=== PATIENT | male | born 1955 | race Caucasian/White ===

== ENCOUNTER 2018-12-13 11:12 | Inpatient (IN) | payer BC ==
--- NOTE | 2018-12-13 11:20 | ED ---
Back Pain - HPI Summary HPI Summary: The patient is a 63 y/o arriving by ambulance to [facility] accompanied by with a chief complaint of thoracic and lumbar back pain gradually onset since surgery on 12/06/18 at [facility]. He reports that he had a spinal fusion of L2-L3, L3-L4 for spinal stenosis about a week ago and had improvement for the first few days while using Hydrocodone. However, over the last 2-3 days, his pain has been increasing despite pain medicine. He also has taken Oxycodone , which he takes chronically for nerve damage, without any relief of the pain. He was advised to stop the Lyrica he also takes chronically, but he had one prior to arrival to see if there was any change in his pain as there was concern that halting it has been the cause for the decline in improvement his is experiencing now. He currently rates the pain 10/10 in severity. He denies any numbness in the lower extremities or bowel or bladder incontinence. There is no discharge noted from the surgical site other than normal drainage. He notes he also has been taking Zofran for nausea that he has been having. PMHx: HTN, high voltage electric shock therapy, spinal stenosis surgery. Former smoker , ocasional EtOH, no substance use. Medications reviewed. Allergies noted. - History of Current Complaint Stated Complaint: BACK PAIN Hx Obtained From: Patient, Family/Prosthetic Aides Teacher - Onset/Duration: Gradual Onset, Lasting Days - since surgery 1 week worsening in last 2-3 days, Still Present Onset/Duration: Started Days Ago, Still Present Timing: Lasting Days Back Pain Location: Is Discrete @ - thoracic and lumbar spine Severity Initially: Moderate Severity Currently: Severe Pain Intensity: 10 Pain Scale Used: 0-10 Numeric Character: Sharp Aggravating Symptom(s): Movement Alleviating Symptom(s): Nothing - Hydrocodone, Oxycodone, Zofran to no relief Associated Signs And Symptoms: Positive: Other - nausea. Negative: bowel or bladder incontinence.. Negative: Numbness - in legs - Allergies/Home Medications Allergies/Adverse Reactions: Allergies Allergy/AdvReac Type Severity Reaction Status Date / Time aspirin Allergy Stomach Verified 12/13/18 11:23 Cramps Home Medications: Home Medications Baclofen TAB* [Lioresal TAB*] 10 mg PO TID PRN 12/13/18 [History Confirmed 12/13] Bifidobacterium Infantis [Align] 4 mg PO DAILY 12/13/18 [History Confirmed 12/13] Budesonide CAP(NF) 9 mg PO DAILY 12/13/18 [History Confirmed 12/13/18] Docusate CAP* [Colace Cap*] 100 mg PO BID 12/13/18 [History Confirmed 12/13/18] Losartan TAB* [Cozaar TAB*] 50 mg PO DAILY 12/13/18 [History Confirmed 12/13/18] Mometasone NASAL (NF) [Nasonex (NF)] 2 spray BOTH NARES DAILY PRN 12/13/18 [ History Confirmed 12/13/18] Naloxone Nasal [place]* [Narcan Nasal [place]] 1 spray NASAL ONCE 12/13/18 [History Confirmed 12/13/18] Oxycodone HCl [Roxicodone] 5 - 10 mg PO Q4HR PRN 12/13/18 [History Confirmed 10/24] Polyethylene Glycol 3350* [Miralax*] 17 gm PO DAILY 12/13/18 [History Confirmed 12/13/18] Pregabalin CAP(*) [Lyrica CAP(*)] 75 mg PO TID 12/13/18 [History Confirmed 12/13] Senna TAB 8.6 mg* [Senokot 8.6 mg TAB*] 1 tab PO BID PRN 12/13/18 [History Confirmed 12/13/18] Tadalafil (Nf) [Cialis (NF)] 20 mg PO DAILY PRN 12/13/18 [History Confirmed 10/24] Teriparatide [Forteo] 20 mcg SUBCUT DAILY 12/13/18 [History Confirmed 12/13/18] PMH/Surg Hx/FS Hx/Imm Hx Endocrine/Hematology History: Denies: Hx Diabetes Cardiovascular History: Reports: Hx Hypertension Denies: Hx Hypercholesterolemia Musculoskeletal History: Reports: Hx Back Problems - spinal stenosis Neurological History: Reports: Other Neuro Impairments/Disorders - 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 Negative: Other - bowel incontinence Negative: incontinence Positive: Other - pain back at surgical site thoracic to lumbar Negative: Other - drainage from surgical site Negative: Numbness - in legs All Other Systems Reviewed And Are Negative: Yes Physical Exam - Summary Physical Exam Summary: VITAL SIGNS: Reviewed. GENERAL: Patient is a well-developed and nourished male who is lying comfortable in the stretcher. She appears to be in acute distress secondary to pain. Patient is not in any acute respiratory distress. HEAD AND FACE: No signs of trauma. No ecchymosis, hematomas or skull depressions. No sinus tenderness. EYES: PERRLA, EOMI x 2, No injected conjunctiva, no nystagmus. EARS: Hearing grossly intact. Ear canals and tympanic membranes are within normal limits. MOUTH: Oropharynx within normal limits. NECK: Supple, trachea is midline, no adenopathy, no JVD, no carotid bruit, no c- spine tenderness, neck with full ROM. CHEST: Symmetric, no tenderness at palpation. LUNGS: Clear to auscultation bilaterally. No wheezing or crackles. CVS: Regular rate and rhythm, S1 and S2 present, no murmurs or gallops appreciated. ABDOMEN: Surgical scar is clear, dry, intact, and without erythema. Soft, non- tender. No signs of distention. No rebound, no guarding, and no masses palpated. Bowel sounds are normal. EXTREMITIES: FROM in all major joints, no edema, no cyanosis or clubbing. NEURO: Alert and oriented x 3. No acute neurological deficits. Speech is normal and follows commands. SKIN: Dry and warm. Triage Information Reviewed: Yes Vital Signs Reviewed: Yes Procedures - Sedation Patient Received Moderate/Deep Sedation with Procedure: No Diagnostics - Laboratory Result Diagrams: 12/13/18 11:35 12/13/18 11:35 Lab Statement: Any lab studies that have been ordered have been reviewed, and results considered in the medical decision making process. Re-Evaluation - Re-Evaluation First Eval Re-Evaluation Time: 12:40 Change: Unchanged Comment: Patient still in pain. We will order Dilaudid. Second Eval Re-Evaluation Time: 14:30 Change: Unchanged Comment: We discussed plan for admission. Back Pain Course/Dx - Course Assessment/Plan: Patient is a 63 y/o M with chief complaint of increasing back pain following spinal fusion a week ago despite Hydrocodone and Oxycodone use, and he is also using Zofran for nausea hes been experiencing. There is concern that stopping Lyrica as advised has worsened his symptoms. 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 Blood test results without any significant abnormality except for slight anemia, urinalysis is negative for UTI. In the ED course, the patient was given IV fluids, Zofran for nausea and vomiting, morphine for back pain and for spasms. The patients symptoms have improved, however the patient is having pain in the lower back. The patient was given 1 mg of Dilaudid and the symptoms have significantly improved. I discussed my physical exam and findings with Zuly Branham patient and from Dr. Karsten Burgos neurosurgeon from [facility] who performed the surgery for the patient, and they recommend only pain management since the patient does not have any fever, the wound is clean dry and intact, and the patient doesnt have an increased in WBCs. The patient was afraid that the pain would return, therefore he requested to be admitted. I discussed my physical exam and findings with Dr. Dumont from the hospital services who accepted the patient for admission. The patient is hemodynamically stable alert and oriented 3. - Diagnoses Provider Diagnoses: Acute back pain - Provider Notifications Discussed Care Of Patient With: AGUSTINA Rudolph - orthopedic neurosurgeryKarsten's office Time Discussed With Above Provider: 14:20 Instructed by Provider To: Other - I spoke with the NPP in Dr. Karsten Burgos's office for pain management, who recommends Oxycodone, Tylenol, ice packs, and lidocaine patch. I discussed the patients case with Dr. Dumont, who accepts the patient for admission at 1420. Discharge ED - Sign-Out/Discharge Documenting (check all that apply): Patient Departure - Patient accepted for admission by Dr. Dumont. - Discharge Plan Condition: Stable Disposition: ADMITTED TO [facility] - Billing Disposition and Condition Condition: STABLE Disposition: Admitted to [facility] - Attestation Statements Document Initiated by Scribe: Yes Documenting Scribe: Gilma Funez Provider For Whom Scribe is Documenting (Include Credential): Dr. Mitul Marsh MD Scribe Attestation: I, Gilma Funez, scribed for Dr. Mitul Marsh MD on 12/13/18 at 1856. Scribe Documentation Reviewed: Yes Provider Attestation: The documentation as recorded by the scribe, Gilma Funez accurately reflects the service I personally performed and the decisions made by me, Dr. Mitul Marsh MD Status of Scribe Document: Viewed
[2018-12-13] MEDS ORDERED: Ondansetron INJ* 2 MG/ML VIAL IV ONE (11:22)
[2018-12-13] MEDS ORDERED: Morphine 4 MG/ML VIAL (1 ml) 4 MG/ML VIAL IV ONE (11:22)
[2018-12-13] MEDS ORDERED: NS 0.9% 1000 ML** 1,000 ML IV ONE ×2 (11:22→14:49)
[2018-12-13] MEDS ORDERED: diazePAM INJ* 5 MG/ML 2ML SYRINGE IV ONE (11:22)
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
--- OUTSIDE RECORDS SUMMARY | 2018-12-13 11:46 | XMS REPORT | Continuity of Care Document ---
:1955 External Reference #:[id number] Author Name Gold Daivd PA-C (transmitted by agent of provider Sami Chiang) Address [address] [facility], [place] [address] Care Team Providers Name Role Phone Kenrick Avilez MD - Internal Medicine Care Team Information Operations Expert Problems Active Problems Provider Date Arthralgia of the pelvic region and thigh Alma Coppola M.D. Onset: 2014 Enthesopathy of hip region Alma Coppola M.D. Onset: 10/15/2014 Localized, primary osteoarthritis Alma Coppola M.D. Onset: 08/14/2015 Knee pain Alma Coppola M.D. Onset: 08/28/2015 Social History Type Date Description Comments Sex Unknown ETOH Use Occasionally consumes alcohol Recreational Drug Use Never Used Drugs Tobacco Use Start: Unknown End: Patient is a former smoker Unknown Smoking Status Reviewed: 10/26/18 Patient is a former smoker Allergies, Adverse Reactions, Alerts Active Allergies Reaction Severity Comments Date Aspirin 03/27/2013 Inactive Allergies Naproxen 11/14/2014 Medications Active Medications SIG Qnty Indications Ordering Date Provider Oxycodone Unknown Bupropion Unknown Colace Unknown Diclofenac Unknown Misoprostol Unknown Esomeprazole Unknown Lyrica four times daily Unknown Capsules Blood Pressure Unknown Medication Forteo inject 20 mcg (one Unknown 600mcg/2.4ML dose) daily Solution subcutaneously Medications Administered in Office Medication SIG Qnty Indications Ordering Provider Date Synvisc Or Synvisc-One Alma Coppola M.D. 10/26/2018 Injection 1 MG Injection Synvisc Or Synvisc-One Alma Carlita Coppola 10/26/2018 Injection 1 MG Injection Synvisc Or Synvisc-One Alma Abdon, Carlita 10/19/2018 Injection 1 MG Injection Synvisc Or Synvisc-One Alma Abdon, Carlita 10/19/2018 Injection 1 MG Injection Synvisc Or Synvisc-One Alma Carlita Coppola 07/12/2017 Injection 1 MG Injection Synvisc Or Synvisc-One Alma Abdon, Carlita 07/12/2017 Injection 1 MG Injection Synvisc Or Synvisc-One Alma Coppola M.D. 07/05/2017 Injection 1 MG Injection Synvisc Or Synvisc-One Alma Coppola M.D. 07/05/2017 Injection 1 MG Injection Synvisc Or Synvisc-One Alma Coppola M.D. 06/28/2017 Injection 1 MG Injection Synvisc Or Synvisc-One Alma Coppola M.D. 06/28/2017 Injection 1 MG Injection Synvisc Or Synvisc-One Alma Coppola M.D. 06/19/2016 Injection 1 MG Injection Synvisc Or Synvisc-One Alma Coppola M.D. 06/12/2016 Injection 1 MG Injection Synvisc Or Synvisc-One Alma Coppola M.D. 06/05/2016 Injection 1 MG Injection Synvisc Or Synvisc-One Alma Abdon, Carlita 09/13/2015 Injection 1 MG Injection Synvisc Or Synvisc-One Alma Abdon, Carlita 09/13/2015 Injection 1 MG Injection Synvisc Or Synvisc-One Alma Carlita Coppola 09/04/2015 Injection 1 MG Injection Synvisc Or Synvisc-One Alma Carlita Coppola 09/04/2015 Injection 1 MG Injection Synvisc Or Synvisc-One Alma Carlita Coppola 08/28/2015 Injection 1 MG Injection Synvisc Or Synvisc-One Alma Abdon, M.D. 08/28/2015 Injection 1 MG Injection Celestone 3 mg and 3mg Maria Isabelpablo Frost, 11/14/2014 Injection Carlita Depomedrol 80MG Alma Coppola M.D. 10/15/2014 Injection Synvisc Or Synvisc-One Alma Coppola M.D. 07/23/2014 Injection 1 MG Injection Synvisc Or Synvisc-One Alma Coppola M.D. 07/16/2014 Injection 1 MG Injection Synvisc Or Synvisc-One Alma Coppola M.D. 07/09/2014 Injection 1 MG Injection Celestone 3 mg and 3mg Maria Isabelpablo Frost, 01/03/2014 Injection Carlita Synkeith Or Synvisc-One Alma Coppola M.D. 11/24/2013 Injection 1 MG Injection Synvisc Or Synvisc-One Alma Coppola M.D. 11/17/2013 Injection 1 MG Injection Synvisc Or Synvisc-One Alma Coppola M.D. 11/10/2013 Injection 1 MG Injection Synvisc Or Synvisc-One Alma Coppola M.D. 10/27/2013 Injection 1 MG Injection Synvisc Or Synvisc-One Alma Coppola M.D. 10/20/2013 Injection 1 MG Injection Synvisc Or Synvisc-One Alma Coppola M.D. 10/13/2013 Injection 1 MG Injection Synvisc Or Synvisc-One Alma Coppola M.D. 04/10/2013 Injection 1 MG Injection Synvisc Or Synvisc-One Alma Coppola M.D. 04/03/2013 Injection 1 MG Injection Synvisc Or Synvisc-One Alma Coppola M.D. 03/27/2013 Injection 1 MG Injection Depomedrol 80MG Alma Coppola M.D. 02/15/2013 Injection Immunizations Description No Information Available Vital Signs Date Vital Result Comment 11/02/2018 1:16pm Height 69.5 inches 5'9.50" Weight 170.00 lb stated Heart Rate 72 /min BP Systolic 120 mmHg BP Diastolic 74 mmHg Respiratory Rate 12 /min Pain Level 0 BMI (Body Mass Index) 24.7 kg/m2 10/26/2018 9:10am Height 69.5 inches 5'9.50" Weight 170.00 lb BP Systolic 142 mmHg BP Diastolic 72 mmHg Respiratory Rate 15 /min Body Temperature 96.3 F Pain Level 4 BMI (Body Mass Index) 24.7 kg/m2 Results Description No Information Available Procedures Date Code Description Status 10/26/201824366 Inject/Drain Joint/Bursa Major W/O US Completed 10/19/201803934 Inject/Drain Joint/Bursa Major W/O US Completed Medical Devices Description No Information Available Encounters Type Date Location Provider Dx Diagnosis Office Visit 09/19/2018 Orthopedic Alma Coppola, M17.0 Bilateral primary 1:[facility] oste[facility] of knee Assessments Date Code Description Provider 11/02/2018 M25.562 Pain in left knee Gold Frankie, PA-C 11/02/2018 M25.561 Pain in right knee Gold Rosano PA-C 11/02/2018 M25.462 Effusion, left knee Gold Rosano PA-C 11/02/2018 M25.461 Effusion, right knee Gold Rosano, PA-C 11/02/2018 M17.0 Bilateral primary osteoarthritis of knee Gold Frankie, PA-C 10/26/2018 M25.562 Pain in left knee Alma Coppola M.D. 10/26/2018 M25.561 Pain in right knee Alma Coppola M.D. 10/26/2018 M25.462 Effusion, left knee Alma Coppola M.D. 10/26/2018 M25.461 Effusion, right knee Alma Coppola M.D. 10/26/2018 M17.0 Bilateral primary osteoarthritis of knee Alma Coppola M.D. 10/19/2018 M25.562 Pain in left knee Alma Coppola M.D. 10/19/2018 M25.561 Pain in right knee Alma Coppola M.D. 10/19/2018 M25.462 Effusion, left knee Alma Coppola M.D. 10/19/2018 M25.461 Effusion, right knee Alma Abdon, M.D. 10/19/2018 M17.0 Bilateral primary osteoarthritis of knee Alma Coppola M.D. 09/19/2018 M17.0 Bilateral primary osteoarthritis of knee Alma Coppola M.D. Plan of Treatment 11/02/2018 - JACIEL Webb-CM25.562 Pain in left kneeFollow up:Follow up: prnM25.561 Pain in right kneeM25.462 Effusion, left kneeM25.461 Effusion, right kneeM17.0 Bilateral primary osteoarthritis of kneeAllImmunizations/Injections: Synvisc Or Synvisc-One Injection 1 MG- Pt brought in, no billSynvisc Or Synvisc- One Injection 1 MG- Pt brought in, no billM25.562 Pain in left kneeFollow up: Follow up: prnM25.561 Pain in right kneeM25.462 Effusion, left kneeM25.461 Effusion, right kneeM17.0 Bilateral primary osteoarthritis of knee Functional Status Description No Information Available Mental Status Description No Information Available Referrals Description No Information Available
--- OUTSIDE RECORDS SUMMARY | 2018-12-13 11:46 | XMS REPORT | Continuity of Care Document ---
:1955 External Reference #:[id number] Author Name Alma Coppola M.D. (transmitted by agent of provider Tracee Chicas) Address [address] [facility] [place] [address] Care Team Providers Name Role Phone Kenrick Avilez MD - Internal Medicine Care Team Information Delivery Specialist Problems Active Problems Provider Date Arthralgia of [...] a former smoker Unknown Smoking Status Reviewed: 10/19/18 Patient is a former smoker Allergies, Adverse [...] Date Synvisc Or Synvisc-One Alma Coppola M.D. 07/12/2017 Injection 1 MG Injection Synvisc Or Synvisc-One Alma Coppola M.D. 07/12/2017 Injection 1 MG Injection Synvisc Or [...] Injection Synvisc Or Synvisc-One Alma Coppola M.D. 09/13/2015 Injection 1 MG Injection Synvisc Or Synvisc-One Alma Coppola M.D. 09/13/2015 Injection 1 MG Injection Synvisc Or Synvisc-One Alma Coppola M.D. 09/04/2015 Injection 1 MG Injection Synvisc Or Synvisc-One Alma Coppola M.D. 09/04/2015 Injection 1 MG Injection Synvisc Or Synvisc-One Alma Coppola M.D. 08/28/2015 Injection 1 MG Injection Synvisc Or Synvisc-One Alma Coppola M.D. 08/28/2015 Injection 1 MG Injection Celestone 3 mg and 3mg Maria Isabel Frost, 11/14/2014 Injection Carlita Depomedrol 80MG Alma Coppola M.D. 10/15/2014 Injection Synvisc Or Synvisc-One Alma Coppola M.D. 07/23/2014 Injection 1 MG Injection Synvisc Or Synvisc-One Alma Coppola M.D. 07/16/2014 Injection 1 MG Injection Synvisc Or Synvisc-One Alma Coppola M.D. 07/09/2014 Injection 1 MG Injection Celestone 3 mg and 3mg Maria Isabel DavisMercedes, 01/03/2014 Injection Carlita Synvisc Or Synvisc-One Alma Coppola M.D. 11/24/2013 Injection [...] Available Vital Signs Date Vital Result Comment 10/19/2018 10:05am Height 69.5 inches 5'9.50" Weight 170.00 lb BP Systolic 124 mmHg BP Diastolic 82 mmHg Body Temperature 97.3 F BMI (Body Mass Index) 24.7 kg/m2 09/19/2018 1:13pm Height 70 inches 5'10" Weight 170.00 lb BP Systolic 112 mmHg BP Diastolic 60 mmHg Body Temperature 97.7 F BMI (Body Mass Index) 24.4 kg/m2 Results Description No Information Available Procedures Date Code Description Status 10/19/2018 Inject/Drain Joint/Bursa Major W/O US Completed 10/19/2018 Inject/Drain Joint/Bursa Major W/O US Completed Medical Devices Description No Information Available Encounters Type Date Location Provider Dx Diagnosis Office Visit 09/19/2018 Orthopedic Alma Coppola, M17.0 Bilateral primary 1:[facility] osteoarthritis of knee Assessments Date Code Description Provider 10/19/2018 M25.562 Pain in left knee Alma Coppola M.D. 10/19/2018 M25.561 Pain in right knee Alma Coppola M.D. 10/19/2018 M25.462 Effusion, left knee Alma Coppola M.D. 10/19/2018 M25.461 Effusion, right knee Alma Coppola M.D. 10/19/2018 M17.0 Bilateral primary osteoarthritis of knee Alma Coppola M.D. 09/19/2018 M17.0 Bilateral primary osteoarthritis of knee Alma Coppola M.D. Plan of Treatment Future Appointment(s):11/02/2018 1:00 pm - Gold David [facility]-C [facility]/26/2018 9:30 am - Al[facility] Coppola M.D. at [facility]2018 - Alma Coppola M.D.M25.562 Pain in left kneeFollow up:Follow up: 1 weekM25.561 Pain in right kneeM25.462 Effusion, left kneeM25.461 Effusion, right kneeM17.0 Bilateral primary osteoarthritis of knee Functional Status Description No Information Available Mental Status Description No Information Available Referrals Description No Information Available
--- OUTSIDE RECORDS SUMMARY | 2018-12-13 11:46 | XMS REPORT | Continuity of Care Document ---
:1955 External Reference #:[id number] Author Name Alma Coppola M.D. (transmitted by agent of provider Geeta Amaya) Address [address] [facility] [place] [address] Care Team Providers Name Role Phone Kenrick Avilez MD - Internal Medicine Care Team Information Workers Compensation Claims Specialist Problems Active Problems Provider Date Arthralgia [...] Date Synvisc Or Synvisc-One Alma Coppola M.D. 10/19/2018 Injection 1 MG Injection Synvisc Or Synvisc-One Alma Coppola M.D. 10/19/2018 Injection 1 MG Injection Synvisc Or [...] Celestone 3 mg and 3mg Maria Isabel BurroughseyMercedes, 01/03/2014 Injection Carlita Synvisc Or Synvisc-One Alma [...] Available Vital Signs Date Vital Result Comment 10/26/2018 9:10am Height 69.5 inches 5'9.50" Weight 170.00 lb BP Systolic 142 mmHg BP Diastolic 72 mmHg Respiratory Rate 15 /min Body Temperature 96.3 F Pain Level 4 BMI (Body Mass Index) 24.7 kg/m2 10/19/2018 10:05am Height 69.5 inches 5'9.50" Weight 170.00 lb BP Systolic 124 mmHg BP Diastolic 82 mmHg Body Temperature 97.3 F BMI (Body Mass Index) 24.7 kg/m2 Results Description No Information Available Procedures Date Code Description Status 10/19/2018 07679 Inject/Drain Joint/Bursa Major W/O US Completed Medical [...] Gold David PA-C at [facility] Functional Status Description No Information Available Mental Status Description No Information Available Referrals Description No Information Available
--- OUTSIDE RECORDS SUMMARY | 2018-12-13 11:46 | XMS REPORT | Summary of Care ---
:1955 Author Organization [facility] Address [address] [facility] [place] [address] Care Team Providers Name Role Phone Kenrick Avilez MD Primary Care Provider Reason for Visit Reason Comments Follow-up Follow-up to renew Rx for Budesonide. Encounter Details Date Type Department Care Team Description 11/01/2018 Office Visit Herson Padgett, Microscopic colitis, Gastroenterology/Hepa Marj Villatoro NP unspecified tology [address] [facility] microscopic colitis [address] [facility] [place] [address] type (Primary Dx) [place] [address] [phone] Allergies Active Allergy Reactions Severity Noted Date Comments Aspirin GI Reaction 06/15/2007 documented as of this encounter (statuses as of 11/01/2018) Medications Medication Sig Dispensed Refills Start End Date Status Date daily vitamin PO Take 1 Tab by 0 Active TABS mouth DAILY. docusate sodium Take 100 mg by 0 Active (COLACE) 100 MG mouth TWICE DAILY. Oral Cap polyethylene Take 17 g by mouth 1 Bottle 3 Active glycol (MIRALAX) DAILY. 2 Oral Powder baclofen Take 1 Tab by 270 Tab 2 Active (LIORESAL) 10 MG mouth THREE TIMES 9 Oral DAILY. TabIndications: Scoliosis of thoracolumbar spine, unspecified scoliosis type Insulin Pen 1 Device by Does 100 Each 3 Active Needle (PEN not apply route 9 NEEDLES) 32G X 6 DAILY. Use with MM Does not apply Forteo Misc LYRICA 75 MG Oral take 1 capsule by 90 Cap 5 Active Cap mouth three times 9 a day mometasone [place] 2 Sprays in 17 g 11 Active [...] MG Oral Tab mouth once daily 9 OXYcodone-acetami Take 1 Tab by 180 Tab 0 Active nophen (PERCOCET) mouth EVERY FOUR 9 5-325 MG Oral Tab HOURS NEEDED (for chronic pain). Max Daily Amount: 6 Tabs. FORTEO 600 INJECT 20 MCG 2.4 mL 11 Active MCG/2.4ML SUBCUTANEOUSLY 9 Subcutaneous ONCE DAILY. Solution REFRIGERATE AND DISCARD PEN 28 DAYS AFTER INITIAL USE. budesonide Take 3 Caps by 90 Cap 11 Active (ENTOCORT EC) 3 mouth DAILY. 9 MG Oral CAPSULE ENTERIC COATED PARTICLESIndicati ons: Microscopic colitis, unspecified microscopic colitis type budesonide take 3 capsules by 90 Cap 0 11/02/19 Discontinued (ENTOCORT EC) 3 mouth once daily 9 19 (Reorder) MG Oral CAPSULE NEED OFFICE ENTERIC COATED VISIT FOR FURTHER PARTICLES REFILLS documented as of this encounter (statuses as of 11/01/2018) Active Problems Problem Noted Date Inflammatory arthropathy [...] as of this encounter (statuses as of 11/01/2018) Resolved Problems Problem Noted Date Resolved Date Lung nodule 10/03/2007 10/03/2007 Lung nodule 10/03/2007 04/01/2009 Overview: seen on T-spine [facility] at [facility], 09/12, will recheck 12/13 Depression 06/15/2007 12/16/2016 documented as of this encounter (statuses as of 11/01/2018) Immunizations Name Administration Dates Next Due H1N1 [...] Sign Reading Time Taken Comments Blood Pressure 130/78 11/01/2018 9:35 AM EDT Pulse 66 11/01/2018 9:35 AM EDT Temperature - - Respiratory Rate - - Oxygen Saturation - - Inhaled Oxygen Concentration - - Weight 79.8 kg (176 lb) 11/01/2018 9:35 AM EDT Height 177.8 cm (5' 10") 11/01/2018 9:35 AM EDT Body Mass Index 25.25 11/01/2018 9:35 AM EDT documented in this encounter Patient Instructions Patient InstructionsWiMarj bowen NP - 11/01/2018 9:40 AM EDT1. Continue Budesonide as directed 2. Follow up annually, sooner with any changes Thank you for choosing the [facility] for your needs today! -Marj Padgett N.P. , Please call if you need to cancel or change your appt. time. Thank you for choosing [facility] for your health care needs, and for consulting with [facility] today. You may receive a survey following this visit, or after an upcoming hospital stay. As easy as it is to feel overloaded with surveys, we are required to send them out randomly and they do provide important feedback so that we may serve your needs in the best way. Please do take the few minutes required to complete the survey if you receive one. We get them too, after seeing the doctor, and they only take a few minutes to complete. documented in this encounter Progress Notes Marj Padgett NP - 11/01/2018 9:40 AM EDT PATIENT: Wolfgang Ellington : 1955 DATE OF SERVICE: 11/01/2018 REFERRING PRACTITIONER: Allan PRIMARY CARE PROVIDER: Kenrick Avilez CHIEF COMPLAINT: Chief Complaint Patient presents with Follow-up Follow-up to renew Rx for Budesonide. Subjective HISTORY OF PRESENT ILLNESS: Wolfgang Ellington is a 63-y.o. male who presents for follow-up of microscopic coliits. Has been takingBudesonide for several years, currently on 9mg daily, does taper to 6mg daily when feeling well. Last colonoscopy 2015 showed mild chronic inflammation. Denies heartburn, dysphagia, fatigue, nausea, vomiting, melena, hamatemesis, hematochezia, jaundice,fevers, chills, night sweats, weight loss, easy bruising , chest pain, shortness of breath, dysuria, hematuria, pyuria, joint pains, acholic stools, dark urine or systemic pruritis. Current Outpatient Medications Medication Sig baclofen (LIORESAL) [...] day mometasone (NASONEX) 50 MCG/ACT Nasal Suspension [place] 2 Sprays in nose DAILY NEEDED (for [...] visit. Allergies Allergen Reactions Aspirin GI Reaction REVIEW OF SYSTEMS: All remaining review of systems was negative except for as noted in the history of present illness/subjective. Objective PHYSICAL EXAMINATION: VITALS: BP 130/78 | Pulse 66 | Ht 5' 10" (1.778 m) | Wt 176 lb (79.8 kg) | BMI 25.25 kg/m Body mass index is 25.25 kg/m. GENERAL: alert, oriented, no acute distress. HEENT: No scleral icterus, MMM Psych: Affect normal Neck: no lymphadenopathy LUNGS: clear to auscultation bilaterally. HEART: regular rhythm, no murmurs, no gallops, no rubs. ABDOMEN: general exam: soft, diffuse tenderness, non-distended, without masses or organomegaly, normal active bowel sounds, Gotti's sign negative. Extrmities: no edema Skin: clear Neuro: gait normal, a&o x 3 RECTAL: exam deferred. Lab Results Component Value Date WBC 4.63 08/24/2018 HGB 14.2 08/24/2018 HCT 43.8 08/24/2018 PLAT 246 08/24/2018 Lab Results Component Value Date NA 138 08/24/2018 K 5.0 08/24/2018 CL 103 08/24/2018 CO2 29 08/24/2018 GLUCOSE 98 08/24/2018 BUN 25 (H) 08/24/2018 CREATININE 1.0 08/24/2018 CALCIUM 9.3 08/24/2018 TP 7.5 08/24/2018 ALBUMIN 4.5 08/24/2018 AST 44 08/24/2018 ALT 31 08/24/2018 ALK 69 08/24/2018 TBILI 0.6 08/24/2018 EGFR >60 08/24/2018 IMPRESSION: ICD-9-CM ICD-10-CM 1. Microscopic colitis, unspecified microscopic colitis type 558.9 K52.839 budesonide (ENTOCORT EC) 3 MG Oral CAPSULE ENTERIC COATED PARTICLES Discussed the jail impact of steroid use with patient, even at low doses, he verbalizes understanding and wishes to remain on current therapy. Plan PLAN: Patient Instructions 1. Continue Budesonide as directed 2. Follow up annually, sooner with any changes Thank you for choosing the [facility] for your needs today! -Marj Padgett N.P. , Please call if you need to cancel or change your appt. time. Thank you for choosing [facility] for your health care needs, and for consulting with [facility] today. You may receive a survey following this visit, or after an upcoming hospital stay. As easy as it is to feel overloaded with surveys, we are required to send them out randomly and they do provide important feedback so that we may serve your needs in the best way. Please do take the few minutes required to complete the survey if you receive one. We get them too, after seeing the doctor, and they only take a few minutes to complete. Author: Marj Padgett NP 11/01/2018 10:39 documented in this encounter Plan of Treatment Date Type Specialty Care Team Description 11/17/2018 Office Visit Internal Medicine Kenrick Avilez MD [address] [place] [id number] [phone] 01/03/2019 Workers' Comp Internal Medicine Kenrick Avilez MD [address] [place] [address] [phone] Health Maintenance Due Date Last Done Comments [...] Type Problems Progress Blood Pressure Blood Pressure 130/78 No Raghav, < 140/90 (11/01/2018 MD Kenrick 9:35 AM EDT) Note: This is an individualized treatment [...] Keep a regular sleep schedule Lifestyle No Kenrick Avilez MD Note: This is an individualized [...] filedocumented in this encounter Visit Diagnoses Diagnosis Microscopic colitis, unspecified microscopic colitis type - Primary documented in this encounter Insurance Payer Benefit Plan / Subscriber ID Effective Dates Phone Address Type Group [facility] xxxxxxxxxxxx 2018-Present [employer] documented as of this encounter
[2018-12-13 11:47] LABS: ABS Lymphocytes 0.9 10^3/ul (1.0-4.8); ABS Monocytes 0.9 10^3/ul (0-0.8); ABS Neutrophils 5.6 10^3/ul (1.5-7.7); Eosinophil % 0.6 %; Hematocrit 26 % (42-52); Hemoglobin 8.9 g/dL (14.0-18.0); Lymphocyte % 11.8 %; Mean Corpuscular HGB Conc 34 g/dL (31-36); Mean Corpuscular Hemoglobin 33 pg (27-31); Mean Corpuscular Volume 97 fL (80-94); Mean Platelet Volume 6.6 fL (7.4-10.4); Platelet Count 433 10^3/uL (150-450); Red Blood Count 2.67 10^6 /uL (4.18-5.48); Red Cell Distribution Width 15 % (10-15); White Blood Count 7.4 10^3/uL (3.5-10.8)
[2018-12-13 12:14] LABS: Albumin 3.6 g/dL (3.2-5.2); Albumin/Globulin Ratio 1.4 (1-3); BUN/Creatinine Ratio 22.4 (8-20); C Reactive Protein 77.39 mg/L (<8.01); Calcium 9.3 mg/dL (8.6-10.3); EGFR African American 144.1 (>60); EGFR Non-African American 119.1 (>60); Globulin 2.5 g/dL (2-4); Potassium 4.8 mmol/L (3.5-5.0); Total Bilirubin 0.4 mg/dL (0.2-1.0); Total Protein 6.1 g/dL (6.4-8.9)
[2018-12-13] MEDS ORDERED: HYDROmorphone INJ* 0.5 MG/0.5 ML SYRINGE IV ONE ×2 (12:41→16:03)
[2018-12-13] MEDS ORDERED: Pregabalin CAP(*) 100 MG PO ONE (14:04)
[2018-12-13] MEDS ORDERED: Pregabalin CAP(*) 25 MG PO ONE (15:00)
[2018-12-13] MEDS ORDERED: Ondansetron INJ* 2 MG/ML VIAL IV PRN (16:24)
[2018-12-13] MEDS ORDERED: Senna TAB 8.6 mg* TAB PO PRN (16:28)
[2018-12-13] MEDS ORDERED: Morphine INJ* 2 MG/ML 1 ML SYRINGE (TWO MG - NEW SYRINGE VERSION) IV PRN ×2 (16:31→20:33)
[2018-12-13 16:49] LABS: Urine Appearance Clear; Urine Bilirubin Negative (Negative); Urine Blood Negative (Negative); Urine Color Yellow; Urine Glucose Negative (Negative); Urine Ketones 1+ (Negative); Urine Nitrite Negative (Negative); Urine Protein Negative (Negative); Urine Specific Gravity 1.011 (1.010-1.030); Urine Urobilinogen Negative (Negative)
[2018-12-13] MEDS: oxyCODONE TAB* 5 MG TAB PO PRN ×2 (18:42→23:11)
[2018-12-13] MEDS: NS 0.9% 1000 ML** 1,000 ML IV SCH (18:42)
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
[2018-12-13 20:01] LABS: Erythrocyte Sed Rate 110 mm/Hr (0-19)
[2018-12-13] MEDS: Pregabalin CAP(*) 25 MG PO SCH (20:53)
[2018-12-13] MEDS: Docusate CAP* 100 MG PO SCH (20:56)
[2018-12-14] MEDS: Morphine INJ* 4 MG/ML 1 ML SYRINGE (NEW SYRINGE VERSION) IV PRN ×5 (02:21→21:32)
[2018-12-14] MEDS: oxyCODONE TAB* 5 MG TAB PO PRN ×5 (04:25→23:25)
[2018-12-14 07:09] LABS: ABS Eosinophils 0.1 10^3/ul (0-0.6); ABS Lymphocytes 1.3 10^3/ul (1.0-4.8); ABS Monocytes 0.8 10^3/ul (0-0.8); ABS Neutrophils 4.2 10^3/ul (1.5-7.7); Eosinophil % 2.1 %; Hematocrit 25 % (42-52); Hemoglobin 8.6 g/dL (14.0-18.0); Lymphocyte % 20.6 %; Mean Corpuscular HGB Conc 34 g/dL (31-36); Mean Corpuscular Hemoglobin 33 pg (27-31); Mean Corpuscular Volume 98 fL (80-94); Mean Platelet Volume 6.6 fL (7.4-10.4); Platelet Count 480 10^3/uL (150-450); Red Blood Count 2.58 10^6 /uL (4.18-5.48); Red Cell Distribution Width 14 % (10-15); White Blood Count 6.5 10^3/uL (3.5-10.8)
[2018-12-14 07:31] LABS: BUN/Creatinine Ratio 19.7 (8-20); C Reactive Protein 59.25 mg/L (<8.01); Calcium 8.9 mg/dL (8.6-10.3); EGFR African American 160.5 (>60); EGFR Non-African American 132.7 (>60); Potassium 4.7 mmol/L (3.5-5.0)
[2018-12-14] MEDS: CMCS: Budesonide CAP(NF) 3 MG PO SCH (08:28)
[2018-12-14] MEDS: Pregabalin CAP(*) 25 MG PO SCH ×3 (08:29→21:31)
[2018-12-14] MEDS: Losartan TAB* 25 MG PO SCH (08:31)
[2018-12-14] MEDS: Docusate CAP* 100 MG PO SCH ×2 (08:31→21:30)
[2018-12-14] MEDS: NS 0.9% 1000 ML** 1,000 ML IV SCH ×2 (08:33→22:43)
[2018-12-14 08:52] LABS: Erythrocyte Sed Rate 97 mm/Hr (0-19)
[2018-12-14] MEDS: Polyethylene Glycol 3350* 17 GM PACKET PO SCH ×2 (08:58→17:10)
[2018-12-14] MEDS: Baclofen TAB* 10 MG PO PRN ×2 (10:49→14:41)
[2018-12-14] MEDS: Acetaminophen TAB* 325 MG PO PRN ×2 (12:38→18:55)
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
--- NOTE | 2018-12-14 17:20 | PN ---
Progress Note - Progress Note Date of Service: 12/14/18 Note: Patient was seen this morning in [facility], he reports that his pain was better controlled over night. He reports being able stand and ambulate to bathroom without assistance. Patient denies issues with fever or chills over night. He is currently pending a MRI to rule out possible infection. Neurosurgery will follow up once imaging is complete.
--- NOTE | 2018-12-14 21:24 | PN ---
Progress Note - Progress Note Date of Service: 12/14/18 Note: Patient seen and examined. Doing much better. Able to ambulate. Tolerates po well. Voids. CT revealed postop changes. MRI not performed per radiology protocol regarding hardware. ESR, WBC, C RP improving. Would continue with pain control, encourage ambulation. Appreciate IM care. Caroline aPyne MD
[2018-12-15] MEDS: Morphine INJ* 4 MG/ML 1 ML SYRINGE (NEW SYRINGE VERSION) IV PRN ×2 (03:17→10:32)
[2018-12-15] MEDS: oxyCODONE TAB* 5 MG TAB PO PRN ×4 (06:56→20:20)
[2018-12-15] MEDS: Docusate CAP* 100 MG PO SCH ×2 (09:14→21:22)
[2018-12-15] MEDS: Pregabalin CAP(*) 25 MG PO SCH ×3 (09:14→21:22)
[2018-12-15] MEDS: Polyethylene Glycol 3350* 17 GM PACKET PO SCH (09:17)
[2018-12-15] MEDS: Acetaminophen TAB* 325 MG PO PRN ×2 (09:18→15:04)
[2018-12-15] MEDS: Baclofen TAB* 10 MG PO PRN ×2 (09:19→15:04)
[2018-12-15] MEDS: CMCS: Budesonide CAP(NF) 3 MG PO SCH (09:19)
[2018-12-15] MEDS: Losartan TAB* 25 MG PO SCH (09:19)
[2018-12-15] MEDS: NS 0.9% 1000 ML** 1,000 ML IV SCH (11:41)
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
[2018-12-15] MEDS ORDERED: Morphine INJ* 4 MG/ML 1 ML SYRINGE (NEW SYRINGE VERSION) IV PRN (15:11)
[2018-12-15] MEDS: Lidocaine PATCH 5%* 1 PATCH TRANSDERM SCH (15:32)
--- NOTE | 2018-12-15 17:47 | PN ---
Progress Note - Progress Note Date of Service: 12/15/18 Note: Patient was seen this morning by neurosurgery, he reports that his pain has been better controlled. He has been able to ambulate independently. Patient denies any fever chills or sweats. Radiology called out clinic yesterday and stated that they were unable to complete MRI study as recommended, because they are uncertain if his hardware is compatible to MRI machine, also patient has external selena. Patient is clear from neurosurgery standpoint for discharge if he is cleared my medicine. Will recommend follow up with pain management and continue follow up with Dr. Burgos at the [facility]. Our team will be happy to assist the patient anyway possible and will continue follow patient throughout his admission.
[2018-12-15] MEDS: oxyCODONE SR TAB(*) 15 MG TAB.SR PO SCH (21:22)
[2018-12-16] MEDS: Lidocaine Patch REMOVE* 1 NOTE MISC SCH ×2 (00:09→20:56)
[2018-12-16] MEDS: oxyCODONE TAB* 5 MG TAB PO PRN ×6 (00:21→23:53)
[2018-12-16 05:28] LABS: ABS Basophils 0.1 10^3/ul (0-0.2); ABS Eosinophils 0.2 10^3/ul (0-0.6); ABS Lymphocytes 1.6 10^3/ul (1.0-4.8); ABS Monocytes 0.7 10^3/ul (0-0.8); ABS Neutrophils 4.2 10^3/ul (1.5-7.7); Eosinophil % 2.6 %; Hematocrit 24 % (42-52); Hemoglobin 8.1 g/dL (14.0-18.0); Lymphocyte % 23.8 %; Mean Corpuscular HGB Conc 33 g/dL (31-36); Mean Corpuscular Hemoglobin 33 pg (27-31); Mean Corpuscular Volume 98 fL (80-94); Mean Platelet Volume 6.2 fL (7.4-10.4); Platelet Count 587 10^3/uL (150-450); Red Blood Count 2.49 10^6 /uL (4.18-5.48); Red Cell Distribution Width 15 % (10-15); White Blood Count 6.7 10^3/uL (3.5-10.8)
[2018-12-16 05:52] LABS: BUN/Creatinine Ratio 19.2 (8-20); C Reactive Protein 51.09 mg/L (<8.01); EGFR African American 130.5 (>60); EGFR Non-African American 107.8 (>60)
[2018-12-16] MEDS: Baclofen TAB* 10 MG PO PRN ×2 (06:42→08:31)
[2018-12-16] MEDS: Acetaminophen TAB* 325 MG PO PRN (06:42)
[2018-12-16] MEDS: Docusate CAP* 100 MG PO SCH ×2 (08:27→20:55)
[2018-12-16] MEDS: Losartan TAB* 25 MG PO SCH (08:28)
[2018-12-16] MEDS: Polyethylene Glycol 3350* 17 GM PACKET PO SCH (08:28)
[2018-12-16] MEDS: Pregabalin CAP(*) 25 MG PO SCH ×3 (08:29→21:13)
[2018-12-16] MEDS: Lidocaine PATCH 5%* 1 PATCH TRANSDERM SCH (08:30)
[2018-12-16] MEDS: CMCS: Budesonide CAP(NF) 3 MG PO SCH (08:31)
[2018-12-16] MEDS: oxyCODONE SR TAB(*) 15 MG TAB.SR PO SCH (08:32)
[2018-12-16] MEDS ORDERED: Magnesium Hydroxide LIQ* 30 ML UDC PO PRN (10:58)
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
[2018-12-16] MEDS ORDERED: Al Hydrox/Mg Hydrox/Simet LIQ* 30 ML UDC PO PRN (19:09)
[2018-12-16] MEDS: oxyCODONE SR TAB(*) 20 MG TAB.SR PO SCH (20:54)
[2018-12-17] MEDS: oxyCODONE TAB* 5 MG TAB PO PRN ×2 (07:32→11:35)
[2018-12-17] MEDS: oxyCODONE SR TAB(*) 20 MG TAB.SR PO SCH (08:24)
[2018-12-17] MEDS: Docusate CAP* 100 MG PO SCH (08:25)
[2018-12-17] MEDS: Losartan TAB* 25 MG PO SCH (08:25)
[2018-12-17] MEDS: Pregabalin CAP(*) 25 MG PO SCH (08:25)
[2018-12-17] MEDS: CMCS: Budesonide CAP(NF) 3 MG PO SCH (08:26)
[2018-12-17] MEDS: Lidocaine PATCH 5%* 1 PATCH TRANSDERM SCH (08:26)
[2018-12-17] MEDS: Polyethylene Glycol 3350* 17 GM PACKET PO SCH (08:30)
[2018-12-17] MEDS: Baclofen TAB* 10 MG PO PRN (08:42)
[2018-12-17 13:02] VITALS: BP 130/60
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
== END 2018-12-17 11:30 | disposition home or self-care (01) | DRG 861 ==
LOC: ED 11:12 → SSU 17:18 → OBSVTOIN 12-15 16:00
PROVIDERS: ADMIT Internal Medicine; ATTEND Internal Medicine
DX: G89.18 Other acute postprocedural pain (principal); I10 Essential (primary) hypertension; M54.9 Dorsalgia, unspecified; M41.9 Scoliosis, unspecified; R11.0 Nausea; G89.29 Other chronic pain; Z88.6 Allergy status to analgesic agent; Z82.3 Family history of stroke; Z80.0 Family history of malignant neoplasm of digestive organs; Z83.3 Family history of diabetes mellitus; Z72.89 Other problems related to lifestyle; Z98.1 Arthrodesis status; Z87.891 Personal history of nicotine dependence
CPT/HCPCS: 36415; 72082; 72128; 72131; 80048; 80053; 81003; 83605; 85025; 85652; 86140; 96361; 96374; 96375; 99285; A9270-GY; G0378; J1170; J2270; J2405; J3360

== ENCOUNTER 2019-01-13 10:02 | Inpatient (IN) | payer BC, MEDICARE ==
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
--- OUTSIDE RECORDS SUMMARY | 2019-01-13 10:36 | XMS REPORT | Summary of Care ---
:1955 Author Organization [facility] Address [address] [facility] [place] [address] Care Team Providers Name Role Phone Kenrick Avilez Primary Care Provider Reason for Visit Reason Comments Back Pain s/p back surgery on 12/06/18, d/c [facility] 12/10/18, admitted to [facility] 12/13/18 and d/c on 12/17/18, seen Dr Marrero 12/19/18 (selena removed), review pain mgt meds Edema c/o worsening edema hips/thighs/groin Encounter Details Date Type Department Care Team Description 12/29/2018 Office Visit [facility] Kenrick Avilez MD Abdominal distention (Primary Dx); Medicine [address] Leg swelling; [address] [place] [address] Dysuria; [place], [place] [id number] Scoliosis of thoracolumbar spine, unspecified scoliosis type [phone] Allergies Active Allergy Reactions Severity Noted Date Comments Aspirin GI Reaction 06/15/2007 documented as of this encounter (statuses as of 12/29/2018) Medications Medication Sig Dispensed Refills Start End Date Status Date daily vitamin PO Take 1 Tab by mouth 0 Active TABS DAILY. docusate sodium Take 100 mg by 0 Active (COLACE) 100 MG mouth TWICE DAILY. Oral Cap polyethylene Take 17 g by mouth 1 Bottle 3 Active glycol (MIRALAX) DAILY. 2 Oral Powder Insulin Pen Needle 1 Device by Does 100 Each 3 Active (PEN NEEDLES) 32G not apply route 9 X 6 MM Does not DAILY. Use with apply Misc Forteo LYRICA 75 MG Oral take 1 capsule by 90 Cap 5 Active Cap mouth three times a 9 day mometasone Nucla 2 Sprays in 17 g 11 Active (NASONEX) 50 nose DAILY 9 MCG/ACT Nasal NEEDED (for nasal Suspension congestion). Tadalafil (CIALIS) Take 1 Tab by mouth 18 Tab 3 Active 20 MG Oral Tab DAILY NEEDED 9 (e.d.). Diclofenac-miSOPRO take 1 tablet by 180 Tab 3 Active Stol 75-0.2 MG mouth twice a day 9 Oral Tab EC if needed for pain losartan (COZAAR) take 1 tablet by 90 Tab 3 Active 50 MG Oral Tab mouth once daily 9 FORTEO 600 INJECT 20 MCG 2.4 mL 11 Active MCG/2.4ML SUBCUTANEOUSLY ONCE 9 Subcutaneous DAILY. REFRIGERATE Solution AND DISCARD PEN 28 DAYS AFTER INITIAL USE. budesonide Take 3 Caps by 90 Cap 11 Active (ENTOCORT EC) 3 MG mouth DAILY. 9 Oral CAPSULE ENTERIC COATED PARTICLESIndicatio ns: Microscopic colitis, unspecified microscopic colitis type baclofen Take 1 Tab by mouth 270 Tab 2 Active (LIORESAL) 10 MG THREE TIMES DAILY 9 Oral NEEDED (muscle TabIndications: cramps). Scoliosis of thoracolumbar spine, unspecified scoliosis type lidocaine EVERY DAY 0 Active transdermal patch 9 (LIDODERM) 5 % Apply externally Patch ondansetron TK 1 T PO QD PRN N 0 Active (ZOFRAN) 4 MG Oral 9 Tab oxycodone, 15 mg EVERY FOUR 0 Active immediate release, HOURS NEEDED. 9 (OXY-IR) 15 MG Cutting in half Oral Tab OXYcodone 20 mg EVERY TWELVE 0 Active (OXYCONTIN) 20 MG HOURS. 9 Oral Tablet Extended Release 12 hour Abuse-Deterrent OXYcodone-acetamin 1 Tab EVERY FOUR 0 Active ophen (PERCOCET) HOURS NEEDED. 9 5-325 MG Oral Tab OXYcodone-acetamin Take 1 Tab by mouth 180 Tab 0 12/30/19 Discontinued ophen (PERCOCET) EVERY FOUR HOURS 9 19 5-325 MG Oral Tab NEEDED (for chronic pain). Max Daily Amount: 6 Tabs. docusate sodium TWICE DAILY 0 12/30/19 Discontinued (COLACE) 100 MG 9 19 Oral Cap documented as of this encounter (statuses as of 12/29/2018) Active Problems Problem Noted Date Inflammatory arthropathy [...] as of this encounter (statuses as of 12/29/2018) Resolved Problems Problem Noted Date Resolved Date Lung nodule 10/03/2007 10/03/2007 Lung nodule 10/03/2007 04/01/2009 Overview: seen on T-spine CT at [facility], 09/12, will recheck 12/13 Depression 06/15/2007 12/16/2016 documented as of this encounter (statuses as of 12/29/2018) Immunizations Name Administration Dates Next Due H1N1 [...] Sign Reading Time Taken Comments Blood Pressure 124/60 12/29/2018 4:51 PM EDT Pulse 66 12/29/2018 4:51 PM EDT Temperature - - Respiratory Rate - - Oxygen Saturation - - Inhaled Oxygen Concentration - - Weight 82.1 kg (181 lb) 12/29/2018 4:51 PM EDT Height 177.8 cm (5' 10") 12/29/2018 4:51 PM EDT Body Mass Index 25.97 12/29/2018 4:51 PM EDT documented in this encounter Patient Instructions Patient InstructionsKenrick Avilez MD - 12/29/2018 4:30 PM EDTContinue same medicines Wear looser clothes Stay well hydrated. Get labs tomorrow documented in this encounter Progress Notes Kenrick Avilez MD - 12/29/2018 4:30 PM EDT PATIENT: Wolfgang Ellington : 1955 DATE OF SERVICE: 12/29/2018 CHIEF COMPLAINT: Chief Complaint Patient presents with Back Pain s/p back surgery on 12/06/18, d/c [facility] 12/10/18, admitted to [facility] 12/13/18 and d/c on 12/17/18, seen Dr Marrero 12/19/18 (selena removed), review pain mgt meds Edema c/o worsening edema hips/thighs/groin Subjective HISTORY OF PRESENT ILLNESS: Wolfgang Ellington is a 63-y.o. male. HPI Recently had corrective surgery for significant kyphoscoliosis in [place]. Came home without incident but then had worsening pain and needed hospitalization at [facility] for several days. Now at home,taking pain medicine, walking, but getting some edema in his flanks, right above waistline, and legsfor which she is using compression stockings, even in scrotum and penis. No chest pain or shortness of breath. Had fairly extensive work-up in the hospital recently no evidence of DVT or pulmonary emboli. Taking quite a bit of opioid, also taking pregabalin. Told him these could cause some swelling. Heeats food with a lot of salt and told him this could make matters worse. Past Medical History: Diagnosis Date Allergic rhinitis [...] Cuff Tendinitis , right 07/13/2008 Thyroid nodule Family History Problem Relation Age of Onset Hypertension Father Colon Cancer Father Diabetes Mother Arthritis Mother Genitourinary () Mother Hypertension Brother X2 Hypertension Child son Undiagnosed/Untreated Disorder Child 1 dtg and 1 son mult handicaps Current Outpatient Medications Medication Sig baclofen (LIORESAL) 10 MG Oral Tab Take 1 Tab by mouth THREE TIMES DAILY NEEDED (muscle cramps). budesonide (ENTOCORT EC) 3 MG Oral CAPSULE [...] not apply route DAILY. Use with Forteo lidocaine transdermal patch (LIDODERM) 5 % Apply externally Patch EVERY DAY losartan (COZAAR) 50 MG Oral Tab take 1 tablet by mouth once daily LYRICA 75 MG Oral Cap take 1 capsule by mouth three times a day mometasone (NASONEX) 50 MCG/ACT Nasal Suspension Nucla 2 Sprays in nose DAILY NEEDED (for nasal congestion). ondansetron (ZOFRAN) 4 MG Oral Tab TK 1 T PO QD PRN N OXYcodone (OXYCONTIN) 20 MG Oral Tablet Extended Release 12 hour Abuse- Deterrent 20 mg EVERY TWELVE HOURS. oxycodone, immediate release, (OXY-IR) 15 MG Oral Tab 15 mg EVERY FOUR HOURS NEEDED. Cutting in half OXYcodone-acetaminophen (PERCOCET) 5-325 MG Oral Tab 1 Tab EVERY FOUR HOURS NEEDED. polyethylene glycol (MIRALAX) Oral Powder Take 17 [...] Last attempt to quit: 08/14/1994 Years since quittin.3 Smokeless tobacco: Never Used Tobacco comment: quit [...] file Gets together: Not on file Attends hindu service: Not on file Active member of [...] Family history is noncontributory. REVIEW OF SYSTEMS: ROS see history of present illness was noncontributory Objective PHYSICAL EXAM: VITALS: BP 124/60 | Pulse 66 | Ht 5' 10" (1.778 m) | Wt 181 lb (82.1 kg) | BMI 25.97 kg/m Body mass index is 25.97 kg/m. Physical Exam Reveals a middle-aged man in no distress. HEENT is unremarkable. There is no scleral icterus. Neck has no JVD. Lungs clear. Heart regular. No gallop some extra turgor in the soft tissues of the lower abdominal wall, just above his waist where the waistband of his tight athletic pants reside. The actual spinal surgical site is clean and dry, healing quite well. No evidence of seroma or hematoma. Legs with 2+ edema. Scrotum slightly edematous. ASSESSMENT / IMPRESSION: ICD-9-CM ICD-10-CM 1. Abdominal distentioncheck lab work looking for any unusual metabolic abnormality (renal problem, CHF, hypoproteinemia) that could cause this swelling. I believe it is mostly abdominal wall subcutaneous swelling, not quite anasarca. He does not want diuretic therapy. Told him to reduce saltintake, but stay well-hydrated.I also told him pregabalin or high-dose opioids can also do this and I urged him to be stingy or with his opioid dosing. 787.3 R14.0 CBC WITH DIFFERENTIAL COMPREHENSIVE METABOLIC PANEL 2. Leg swelling 729.81 M79.89 NT PROBNP 3. Dysuriarule out UTI. 788.1 R30.0 URINALYSIS (LAB) WITH REFLEX CULTURE Patient Instructions Continue same medicines Wear looser clothes Stay well hydrated. Get labs tomorrow A total of 25 minutes was spent with patient adressing the patient's condition and plan of care. Author: Kenrick Avilez MD 12/29/2018 17:30 documented in this encounter Plan of Treatment Date Type Specialty Care Team Description 12/30/2018 Lab Internal Medicine 01/18/2019 Workers' Comp Internal Medicine Kenrick Avilez MD [address] [place] [address] [phone] Name Type Priority Associated Diagnoses Order Schedule CBC WITH DIFFERENTIAL Lab Routine Abdominal distention Expected: 12/30/2018 (Approximate), Expires: 06/27/2019 COMPREHENSIVE METABOLIC Lab Routine Abdominal distention Expected: 2018 PANEL (Approximate), Expires: 06/27/2019 URINALYSIS (LAB) WITH REFLEX Lab Routine Dysuria Expected: 12/30/2018 CULTURE (Approximate), Expires: 06/27/2019 NT PROBNP Lab Routine Leg swelling Expected: 12/30/2018 (Approximate), Expires: 12/30/2019 Health Maintenance Due Date Last Done Comments [...] Type Problems Progress Blood Pressure Blood Pressure 124/60 Tri Avilez, < 140/90 (12/29/2018 MD Kenrick 4:51 PM EDT) Note: This is an individualized [...] screen (PHQ-9) Depression 1 (09/20/2018 9:22 AM Kenrick Merrill MD total score < 5 EDT) Note: This is an individualized treatment (depression) goal for Wolfgang Ellington: Displayed above is your goal for a depression screening (PHQ-9) score that would indicate good control of your depression. Keep a regular sleep schedule Lifestyle Kenrick Merrill MD Note: This is an individualized lifestyle [...] filedocumented in this encounter Visit Diagnoses Diagnosis Abdominal distention - Primary Flatulence, eructation, and gas pain Leg swelling Swelling of limb Dysuria Scoliosis of thoracolumbar spine, unspecified scoliosis type documented in this encounter Insurance Payer Benefit Plan / Subscriber ID Effective Dates Phone Address Type Group [facility] xxxxxxxxxxxx 2018-Present Blue Cross/Blue Shield documented as of this encounter
--- OUTSIDE RECORDS SUMMARY | 2019-01-13 10:36 | XMS REPORT | Summary of Care ---
:1955 Author Organization [facility] Address [address] [facility] [place] [address] Care Team Providers Name Role Phone Nevaehgilberto Kenrick Primary Care Provider Reason for Visit Reason Comments Transitional Care Management here to have selena removed from waist to T10. was in [facility] on and released sat. Encounter Details Date Type Department Care Team Description 12/19/2018 Office Visit [facility] Rob Marrero DO Encounter for staple removal (Primary Dx); Practice [address] [facility] [address] Fusion of spine, unspecified spinal region [address] [place] [address] [place] [address] [phone] Allergies Active Allergy Reactions Severity Noted Date Comments Aspirin GI Reaction 06/15/2007 documented as of this encounter (statuses as of 12/20/2018) Medications Medication Sig Dispensed Refills Start Date End Date Status daily vitamin PO Take 1 Tab by mouth 0 Active TABS DAILY. docusate sodium Take 100 mg by mouth 0 Active (COLACE) 100 MG Oral TWICE DAILY. Cap polyethylene glycol Take 17 g by mouth 1 Bottle 3 05/13/2011 Active (MIRALAX) Oral DAILY. Powder Insulin Pen Needle 1 Device by Does not 100 Each 3 05/17/2018 Active (PEN NEEDLES) 32G X apply route DAILY. 6 MM Does not apply Use with Forteo Misc LYRICA 75 MG Oral take 1 capsule by 90 Cap 5 06/21/2018 Active Cap mouth three times a day mometasone (NASONEX) [place] 2 Sprays in 17 g 11 07/19/2018 Active 50 MCG/ACT Nasal nose DAILY NEEDED Suspension (for nasal congestion). Tadalafil (CIALIS) Take 1 Tab by mouth 18 Tab 3 07/19/2018 Active 20 MG Oral Tab DAILY NEEDED (e.d.). Diclofenac-miSOPROSt take 1 tablet by 180 Tab 3 08/12/2018 Active ol 75-0.2 MG Oral mouth twice a day if Tab EC needed for pain losartan (COZAAR) 50 take 1 tablet by 90 Tab 3 09/26/2018 Active MG Oral Tab mouth once daily FORTEO 600 MCG/2.4ML INJECT 20 MCG 2.4 mL 10/18/2018 Active Subcutaneous SUBCUTANEOUSLY ONCE Solution DAILY. REFRIGERATE AND DISCARD PEN 28 DAYS AFTER INITIAL USE. budesonide (ENTOCORT Take 3 Caps by mouth 90 Cap 11 11/01/2018 Active EC) 3 MG Oral DAILY. CAPSULE ENTERIC COATED PARTICLESIndications : Microscopic colitis, unspecified microscopic colitis type baclofen (LIORESAL) Take 1 Tab by mouth 270 Tab 2 11/17/2018 Active 10 MG Oral THREE TIMES DAILY TabIndications: NEEDED (muscle Scoliosis of cramps). thoracolumbar spine, unspecified scoliosis type OXYcodone-acetaminop Take 1 Tab by mouth 180 Tab 0 12/01/2018 Active hen (PERCOCET) 5-325 EVERY FOUR HOURS MG Oral Tab NEEDED (for chronic pain). Max Daily Amount: 6 Tabs. documented as of this encounter (statuses as of 12/20/2018) Active Problems Problem Noted Date Inflammatory arthropathy [...] as of this encounter (statuses as of 12/20/2018) Resolved Problems Problem Noted Date Resolved Date Lung nodule 10/03/2007 10/03/2007 Lung nodule 10/03/2007 04/01/2009 Overview: seen on T-spine CT at [facility], 09/12, will recheck 12/13 Depression 06/15/2007 12/16/2016 documented as of this encounter (statuses as of 12/20/2018) Immunizations Name Administration Dates Next Due H1N1 [...] Sign Reading Time Taken Comments Blood Pressure 118/58 12/19/2018 6:55 PM EDT Pulse 89 12/19/2018 6:55 PM EDT Temperature - - Respiratory Rate - - Oxygen Saturation 93% 12/19/2018 6:55 PM EDT Inhaled Oxygen Concentration - - Weight 79.4 kg (175 lb 1.6 oz) 12/19/2018 6:55 PM EDT Height 177.8 cm (5' 10") 12/19/2018 6:55 PM EDT Body Mass Index 25.12 12/19/2018 6:55 PM EDT documented in this encounter Progress Notes Rob Marrero, - 12/19/2018 6:40 PM EDT PATIENT: Wolfgang Ellington : 1955 DATE OF SERVICE: 12/19/2018 CHIEF COMPLAINT: Chief Complaint Patient presents with Transitional Care Management here to have selena removed from waist to T10. was in [facility] on and released sat. Subjective HISTORY OF PRESENT ILLNESS: Wolfgang Ellington is a 63-y.o. male. HPI Dec 06 2018 he had spinal fusion from t12 to SI joints 14 days now with selena and was told to get them out No oozing from incision areas and healing up well No fever Post op pain did get uncontrolled so [place] [facility] [place] but now better Past Medical History: Diagnosis Date Allergic rhinitis [...] day mometasone (NASONEX) 50 MCG/ACT Nasal Suspension Hammond 2 Sprays in nose DAILY NEEDED (for [...] file Gets together: Not on file Attends mandaeism service: Not on file Active member of [...] SYSTEMS: Review of Systems Constitutional: Negative for fever. Cardiovascular: Negative for chest pain. Gastrointestinal: Negative for abdominal pain. Objective PHYSICAL EXAM: VITALS: BP 118/58 (BP Location: Left arm, Patient Position: Sitting) | Pulse 89 | Ht 5' 10" (1.778 m) | Wt 175 lb 1.6 oz (79.4 kg) | SpO2 93% | BMI 25.12 kg/m Body mass index is 25.12 kg/m. Physical Exam Skin: Comments: 36 selena from thoracic to lumbar spine Neurological: Mental Status: He is alert. ASSESSMENT / IMPRESSION: ICD-9-CM ICD-10-CM 1. Encounter for staple removal V58.32 Z48.02 REMOVE SELENA, SUTURES AND/OR STERI-STRIPS 2. Fusion of spine, unspecified spinal region 724.9 M43.20 REMOVE SELENA, SUTURES AND/OR STERI-STRIPS Plan Without issues, I removed all 36 selena. Nurse applied steri strips and told them to leave it on for next 7-10 days to allow more healing. Keep area covered when doing showers/baths. Explained to watch for signs of infection. Follow up with pcp and neurosurgery as scheduled Author: Rob Marrero DO 12/20/2018 08:44 documented in this encounter Plan of Treatment Date Type Specialty Care Team Description 01/18/2019 Workers' Comp Internal Medicine Kenrick Avilez MD [address] [place] [address] [phone] Health Maintenance Due Date Last Done Comments [...] Type Problems Progress Blood Pressure Blood Pressure 118/58 No Raghav, < 140/90 (12/19/2018 MD Kenrick 6:55 PM EDT) Note: This is an individualized [...] Take all prescribed medications as directed Self-management No Kenrick Avilez MD Note: This is an individualized self-management [...] filedocumented in this encounter Visit Diagnoses Diagnosis Encounter for staple removal - Primary Encounter for removal of sutures Fusion of spine, unspecified spinal region documented in this encounter Insurance Payer Benefit Plan / Subscriber ID Effective Dates Phone Address Type Group [facility] xxxxxxxxxxxx 2018-Present Blue Cross/Blue Shield documented as of this encounter
[2019-01-13] MEDS ORDERED: Morphine 4 MG/ML VIAL (1 ml) 4 MG/ML VIAL IV ONE (10:37)
[2019-01-13] MEDS ORDERED: diPHENhydraMINE IV* 50 MG/ML 1 ml VIAL (BENADRYL) IV ONE (10:59)
[2019-01-13 11:18] LABS: Albumin 4.2 g/dL (3.2-5.2); Albumin/Globulin Ratio 1.4 (1-3); BUN/Creatinine Ratio 15.2 (8-20); C Reactive Protein 3.39 mg/L (<8.01); Calcium 10.1 mg/dL (8.6-10.3); EGFR African American 119.1 (>60); EGFR Non-African American 98.4 (>60); Globulin 2.9 g/dL (2-4); Potassium 3.9 mmol/L (3.5-5.0); Total Bilirubin 0.5 mg/dL (0.2-1.0); Total Protein 7.1 g/dL (6.4-8.9)
[2019-01-13] MEDS ORDERED: oxyCODONE SR TAB(*) 20 MG TAB.SR PO ONE (11:41)
[2019-01-13 11:56] LABS: Urine Appearance Clear; Urine Bilirubin Negative (Negative); Urine Blood Negative (Negative); Urine Color Yellow; Urine Glucose Negative (Negative); Urine Ketones Negative (Negative); Urine Nitrite Negative (Negative); Urine Protein Negative (Negative); Urine Specific Gravity 1.008 (1.010-1.030); Urine Urobilinogen Negative (Negative)
[2019-01-13 12:01] LABS: ABS Lymphocytes 0.9 10^3/ul (1.0-4.8); ABS Monocytes 0.5 10^3/ul (0-0.8); ABS Neutrophils 6.1 10^3/ul (1.5-7.7); Eosinophil % 0.2 %; Hematocrit 37 % (42-52); Lymphocyte % 11.7 %; Mean Corpuscular HGB Conc 33 g/dL (31-36); Mean Corpuscular Hemoglobin 32 pg (27-31); Mean Corpuscular Volume 98 fL (80-94); Mean Platelet Volume 6.6 fL (7.4-10.4); Nucleated Red Blood Cells % 0.1; Platelet Count 282 10^3/uL (150-450); Red Blood Count 3.77 10^6 /uL (4.18-5.48); Red Cell Distribution Width 15 % (10-15); White Blood Count 7.4 10^3/uL (3.5-10.8)
[2019-01-13] MEDS ORDERED: HYDROmorphone INJ* 0.5 MG/0.5 ML SYRINGE IV ONE ×3 (12:08→18:07)
[2019-01-13] MEDS ORDERED: Iohexol 300* (CONTRAST) 10 ML SDV IV ONE (12:50)
[2019-01-13] MEDS ORDERED: oxyCODONE TAB* 5 MG TAB PO ONE ×2 (12:53→13:02)
[2019-01-13] MEDS ORDERED: Ondansetron INJ* 2 MG/ML VIAL IV PRN (17:17)
[2019-01-13] MEDS ORDERED: oxyCODONE TAB* 5 MG TAB PO PRN (17:20)
[2019-01-13] MEDS ORDERED: Fluticasone NASAL SPRAY 50MCG* 16 gm SPRAY BTL BOTH NARES PRN (17:20)
[2019-01-13] MEDS ORDERED: Enoxaparin(*) 40 MG/0.4 ML SYR SUBCUT SCH (18:00)
[2019-01-13] MEDS: Baclofen TAB* 10 MG PO PRN (19:17)
[2019-01-13] MEDS: Pregabalin CAP(*) 25 MG PO SCH (21:19)
[2019-01-13] MEDS: oxyCODONE SR TAB(*) 20 MG TAB.SR PO SCH (21:20)
[2019-01-13] MEDS: Docusate CAP* 100 MG PO SCH (21:20)
[2019-01-13] MEDS: oxyCODONE TAB* 5 MG TAB PO PRN (22:45)
[2019-01-13] MEDS: Lidocaine Patch REMOVE* 1 NOTE MISC PATCH OFF SCH (22:47)
[2019-01-13] MEDS: Enoxaparin(*) 40 MG/0.4 ML SYR SUBCUT SCH (22:59)
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
[2019-01-14] MEDS: oxyCODONE TAB* 5 MG TAB PO PRN ×5 (03:44→21:30)
[2019-01-14 05:49] LABS: ABS Eosinophils 0.1 10^3/ul (0-0.6); ABS Lymphocytes 1.2 10^3/ul (1.0-4.8); ABS Monocytes 0.6 10^3/ul (0-0.8); ABS Neutrophils 2.6 10^3/ul (1.5-7.7); Eosinophil % 1.8 %; Hematocrit 32 % (42-52); Hemoglobin 10.5 g/dL (14.0-18.0); Lymphocyte % 27.6 %; Mean Corpuscular HGB Conc 33 g/dL (31-36); Mean Corpuscular Hemoglobin 31 pg (27-31); Mean Corpuscular Volume 95 fL (80-94); Mean Platelet Volume 6.4 fL (7.4-10.4); Nucleated Red Blood Cells % 0.1; Platelet Count 280 10^3/uL (150-450); Red Blood Count 3.35 10^6 /uL (4.18-5.48); Red Cell Distribution Width 15 % (10-15); White Blood Count 4.5 10^3/uL (3.5-10.8)
[2019-01-14 06:07] LABS: BUN/Creatinine Ratio 14.8 (8-20); Calcium 9.5 mg/dL (8.6-10.3); EGFR African American 115.7 (>60); EGFR Non-African American 95.6 (>60); Potassium 4.6 mmol/L (3.5-5.0)
[2019-01-14] MEDS: Lidocaine PATCH 5%* 1 PATCH TRANSDERM SCH (08:57)
[2019-01-14] MEDS ORDERED: Losartan TAB* 25 MG PO SCH ×2 (09:00→21:00)
[2019-01-14] MEDS: Docusate CAP* 100 MG PO SCH ×2 (09:00→21:14)
[2019-01-14] MEDS: oxyCODONE SR TAB(*) 20 MG TAB.SR PO SCH ×2 (09:00→21:15)
[2019-01-14] MEDS: Pregabalin CAP(*) 25 MG PO SCH ×3 (09:00→21:16)
[2019-01-14] MEDS ORDERED: Polyethylene Glycol 3350* 17 GM PACKET PO SCH (09:00)
[2019-01-14] MEDS: Baclofen TAB* 10 MG PO PRN ×3 (09:18→21:30)
[2019-01-14] MEDS ORDERED: Cyclobenzaprine TAB* 10 MG PO ONE (11:16)
[2019-01-14] MEDS ORDERED: HYDROmorphone INJ* 0.5 MG/0.5 ML SYRINGE IV SLOW PU ONE (11:17)
[2019-01-14] MEDS ORDERED: Cyclobenzaprine TAB* 10 MG ONE (11:20)
[2019-01-14] MEDS ORDERED: HYDROmorphone INJ* 0.5 MG/0.5 ML SYRINGE ONE (11:21)
[2019-01-14] MEDS: busPIRone TAB* 5 MG PO SCH ×2 (13:12→21:15)
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
[2019-01-14] MEDS ORDERED: Senna TAB 8.6 mg* TAB PO PRN (18:31)
[2019-01-14] MEDS: Polyethylene Glycol 3350* 17 GM PACKET PO SCH (21:17)
[2019-01-14] MEDS: Enoxaparin(*) 40 MG/0.4 ML SYR SUBCUT SCH (21:17)
[2019-01-14] MEDS: Lidocaine Patch REMOVE* 1 NOTE MISC PATCH OFF SCH (21:39)
[2019-01-15] MEDS: oxyCODONE TAB* 5 MG TAB PO PRN ×5 (03:19→20:31)
[2019-01-15] MEDS: Baclofen TAB* 10 MG PO PRN ×3 (05:49→21:55)
[2019-01-15 08:17] LABS: BUN/Creatinine Ratio 17.4 (8-20); Calcium 9.3 mg/dL (8.6-10.3); EGFR African American 99.9 (>60); EGFR Non-African American 82.6 (>60); Potassium 4.4 mmol/L (3.5-5.0)
[2019-01-15 08:18] LABS: ABS Eosinophils 0.1 10^3/ul (0-0.6); ABS Lymphocytes 1.2 10^3/ul (1.0-4.8); ABS Monocytes 0.5 10^3/ul (0-0.8); ABS Neutrophils 2.5 10^3/ul (1.5-7.7); Eosinophil % 2.4 %; Hematocrit 32 % (42-52); Hemoglobin 10.6 g/dL (14.0-18.0); Lymphocyte % 27.9 %; Mean Corpuscular HGB Conc 33 g/dL (31-36); Mean Corpuscular Hemoglobin 31 pg (27-31); Mean Corpuscular Volume 95 fL (80-94); Mean Platelet Volume 6.5 fL (7.4-10.4); Nucleated Red Blood Cells % 0.1; Platelet Count 292 10^3/uL (150-450); Red Blood Count 3.37 10^6 /uL (4.18-5.48); Red Cell Distribution Width 15 % (10-15); White Blood Count 4.3 10^3/uL (3.5-10.8)
[2019-01-15] MEDS: Pregabalin CAP(*) 25 MG PO SCH ×3 (08:36→21:54)
[2019-01-15] MEDS: oxyCODONE SR TAB(*) 20 MG TAB.SR PO SCH ×2 (08:36→21:54)
[2019-01-15] MEDS: Docusate CAP* 100 MG PO SCH ×2 (08:36→21:54)
[2019-01-15] MEDS: busPIRone TAB* 5 MG PO SCH ×2 (08:40→21:53)
[2019-01-15] MEDS: Lidocaine PATCH 5%* 1 PATCH TRANSDERM SCH (08:47)
[2019-01-15] MEDS: Cyclobenzaprine TAB* 10 MG PO PRN ×2 (09:16→21:55)
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
[2019-01-15] MEDS: Polyethylene Glycol 3350* 17 GM PACKET PO SCH (21:53)
[2019-01-15] MEDS: Lidocaine Patch REMOVE* 1 NOTE MISC PATCH OFF SCH (21:57)
[2019-01-15] MEDS: Enoxaparin(*) 40 MG/0.4 ML SYR SUBCUT SCH (21:58)
[2019-01-16] MEDS: oxyCODONE TAB* 5 MG TAB PO PRN ×5 (00:36→19:55)
[2019-01-16] MEDS: Baclofen TAB* 10 MG PO PRN (07:57)
[2019-01-16] MEDS: busPIRone TAB* 5 MG PO SCH ×2 (08:42→22:15)
[2019-01-16] MEDS: oxyCODONE SR TAB(*) 20 MG TAB.SR PO SCH ×2 (08:43→22:15)
[2019-01-16] MEDS: Docusate CAP* 100 MG PO SCH ×2 (08:43→22:16)
[2019-01-16] MEDS: Pregabalin CAP(*) 25 MG PO SCH ×3 (08:43→22:15)
[2019-01-16] MEDS: Lidocaine PATCH 5%* 1 PATCH TRANSDERM SCH (08:45)
[2019-01-16] MEDS: Cyclobenzaprine TAB* 10 MG PO PRN ×2 (10:11→19:46)
[2019-01-16] MEDS ORDERED: hydrOXYzine HCL TAB* 50 MG PO ONE (13:07)
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
[2019-01-16] MEDS: Baclofen TAB* 20 MG PO PRN ×2 (15:59→19:46)
[2019-01-16] MEDS ORDERED: Gadoteridol* (CONTRAST) 279.3 MG/ML 10 ML IV ONE (21:05)
[2019-01-16] MEDS: Enoxaparin(*) 40 MG/0.4 ML SYR SUBCUT SCH (22:17)
[2019-01-16] MEDS: Polyethylene Glycol 3350* 17 GM PACKET PO SCH (22:18)
[2019-01-16] MEDS: Lidocaine Patch REMOVE* 1 NOTE MISC PATCH OFF SCH (22:20)
[2019-01-17] MEDS: oxyCODONE TAB* 5 MG TAB PO PRN ×4 (00:09→20:50)
[2019-01-17] MEDS: oxyCODONE SR TAB(*) 20 MG TAB.SR PO SCH ×2 (08:06→20:40)
[2019-01-17] MEDS: busPIRone TAB* 5 MG PO SCH ×2 (08:06→20:50)
[2019-01-17] MEDS: Pregabalin CAP(*) 25 MG PO SCH ×3 (08:06→21:23)
[2019-01-17] MEDS: Docusate CAP* 100 MG PO SCH ×2 (08:06→20:42)
[2019-01-17] MEDS: Cyclobenzaprine TAB* 10 MG PO PRN ×2 (08:07→20:41)
[2019-01-17] MEDS: Baclofen TAB* 20 MG PO PRN ×3 (08:11→20:41)
--- NOTE | 2019-01-17 13:16 | CONS ---
CONSULTATION REPORT: DATE OF CONSULT: 01/17/19 HISTORY OF PRESENT ILLNESS: Mr. Ellington is a 63-year-old gentleman who recently had T10-S1 fusion at [facility]. He was previously seen by the neurosurgery team here at [facility] for intractable back pain last month. He is followed up today for the same complaint post mechanical fall on . The patient reports being at home and was attempting to hug his daughter when he fell backwards and hit his back on a commode at his house. His pain increased gradually over the next 24 hours, which prompted him to come to the hospital on 01/13/19 with complaint of intractable low back pain. He has noticed some swelling in bilateral hips and has had difficulty with standing and walking. He denies any issues with loss of control of bladder or bowel or loss of sensation in lower extremities. He has noticed that he has increased pain with standing and walking. He is only able to walk short distances with assistance with a walker. He describes his pain as episodic, sharp, severe in intensity, but lasts for brief seconds. He states when he has the pain episodes, it causes his legs to give out from underneath him. It causes issues with his balance. The patient was admitted by the hospitalist team and Neurosurgery was consulted to evaluate the patient for his intractable low back pain. PAST MEDICAL HISTORY: History of hypertension and high cholesterol. PAST SURGICAL HISTORY: Spinal fusion at T10 through S1 completed in December at [facility]. SOCIAL HISTORY: Denies alcohol use. Denies substance abuse. Admits to tobacco use. PHYSICAL EXAM: Vital Signs: Temperature is 98.8, heart rate 71, respiration rate 14, oxygen 99% on room air, blood pressure is 107/61. The patient is lying inclined in bed, has some acute distress. He is alert and oriented x3. Cranial nerves II through XII grossly intact without impairment. EOMs intact. Peripheral vision is intact. Has full range of motion with flexion and extension of the cervical spine. Upper Extremities: Muscle strength 5/5, has increased pain with abduction of shoulders which causes increased back pain. There is fluid retention with no bruising on bilateral hips, left greater than right. Lower Extremities: Motor strength 5/5 throughout with hip flexion, leg flexion and extension. EHL is 5/5 bilaterally. Sensation is intact throughout with dull touch. DTRs are 2+/4. No clonus, no Babinski's noted. DIAGNOSTIC STUDIES: CT scan of thoracic and lumbar, thoracic completed on 01/13 shows hardware intact, no acute injury noted. Lumbar spine CT: Again, no acute injury seen. [id number] degenerative changes seen throughout the lumbar spine. Hardware intact without failure. MRI of the lumbar spine shows small fluid collection above the surgical bed, [id number] degenerative changes seen. ASSESSMENT AND PLAN: A 63-year-old male with acute axial low back pain, status post mechanical fall, has some swelling in the hips bilaterally. On imaging, hardware is intact with no signs of failure. There is no acute injury seen on imaging. There are no signs of infection also seen. White blood cell count is within normal limits. The patient is afebrile. His pain appears to be possibly caused by acute injury from the mechanical fall that he sustained on , possibly causing some inflammation. At this time, we will recommend that the patient continue to do pain control with medical pain management. Also encouraged the patient to ambulate and work with physical therapy as well as occupational therapy, also follow medical recommendations. We will discuss this case further with Dr. Payne. Thank you for allowing me to be a part of this patient's care. JACIEL HOBBS [id number]/[facility] #: [id number] MTDD
[2019-01-17] MEDS: predniSONE TAB* 20 MG PO SCH (13:52)
[2019-01-17] MEDS: Lidocaine PATCH 5%* 1 PATCH TRANSDERM SCH (13:53)
[2019-01-17] MEDS: Lidocaine Patch REMOVE* 1 NOTE MISC PATCH OFF SCH ×2 (13:58→21:23)
--- NOTE | 2019-01-17 16:37 | PN ---
Subjective Date of Service: 01/17/19 Interval History: Doubled baclofen dose yesterday. Pt still with intermittent spasms, including during interview today with NSLINDA PA present. Pt has spasms during exam. States he has only been able to walk twice during this hospitalization, both times to the bathroom and with much assistance. Will attempt short steroid burst, to start today. Pt thinks he is having swelling around his buttocks. Also states his L leg looks more swollen than R, but he had Dopplers on Wednesday for this, and they were negative for DVT. Pending final exam and recs from Dr. Chacon. Objective Active Medications: Baclofen (Lioresal Tab*) 20 mg PO TID PRN PRN Reason: SPASMS - MUSCLE Last Admin: 01/17/19 13:53 Dose: 20 mg Buspirone HCl (Buspar Tab*) 5 mg PO BID [facility] Last Admin: 01/17/19 08:06 Dose: 5 mg Cyclobenzaprine HCl (Flexeril Tab*) 10 mg PO BID PRN PRN Reason: muscle spasm Last Admin: 01/17/19 08:07 Dose: 10 mg Docusate Sodium (Colace Cap*) 100 mg PO BID [facility] Last Admin: 01/17/19 08:06 Dose: 100 mg Enoxaparin Sodium (Lovenox(*)) 40 mg SUBCUT BEDTIME [facility] Last Admin: 01/16/19 22:17 Dose: 40 mg Fluticasone Propionate (Flonase Nasal [place] 50mcg*) 2 spray BOTH NARES DAILY PRN PRN Reason: Allergy Symptoms Lidocaine (Lidoderm 5% Patch*) 1 patch TRANSDERM DAILY [facility] Last Admin: 01/17/19 13:53 Dose: 1 patch Ondansetron HCl (Zofran Inj*) 4 mg IV Q4H PRN PRN Reason: NAUSEA/VOMITING Oxycodone HCl (Oxycontin(*)) 20 mg PO Q12HR [facility] Last Admin: 01/17/19 08:06 Dose: 20 mg Oxycodone HCl (Roxycodone Tab*) 15 mg PO Q4H PRN PRN Reason: PAIN - MODERATE Last Admin: 01/17/19 13:52 Dose: 15 mg Pharmacy Profile Note (Lidocaine Patch Remove*) 1 note PATCH OFF 2100 [facility] Last Admin: 01/17/19 13:58 Dose: 1 note Polyethylene Glycol/Electrolytes (Miralax*) 17 gm PO BEDTIME [facility] Last Admin: 01/16/19 22:18 Dose: 17 gm Prednisone (Deltasone Tab*) 60 mg PO DAILY [facility] Stop: 01/21/19 09:01 Last Admin: 01/17/19 13:52 Dose: 60 mg Pregabalin (Lyrica Cap(*)) 75 mg PO TID [facility] Last Admin: 01/17/19 13:53 Dose: 75 mg Senna (Senokot 8.6 Mg Tab*) 1 tab PO BEDTIME PRN PRN Reason: if no BM during day Vital Signs - 8 hr 01/17/19 01/17/19 01/17/19 10:00 12:13 13:52 Temperature 98.8 F Pulse Rate 71 Respiratory 14 14 18 Rate Blood Pressure 107/61 (mmHg) O2 Sat by Pulse 99 Oximetry 01/17/19 01/17/19 13:53 15:18 Temperature 98.0 F Pulse Rate 70 Respiratory 18 18 Rate Blood Pressure 112/62 (mmHg) O2 Sat by Pulse 93 Oximetry Oxygen Devices in Use Now: None Appearance: well appearing man in NAD, except during brief 5-10 second spasms when he shouts and grabs bed rails and turns to side Eyes: No Scleral Icterus Ears/Nose/Mouth/Throat: Clear Oropharnyx, Mucous Membranes Moist Neck: NL Appearance and Movements; NL JVP, Trachea Midline Respiratory: Symmetrical Chest Expansion and Respiratory Effort, Clear to Auscultation Cardiovascular: NL Sounds; No Murmurs; No JVD, RRR Abdominal: NL Sounds; No Tenderness; No Distention, No Hepatosplenomegaly Extremities: - - L leg slightly larger diameter than R, no pitting edema or cords; wwp Neurological: Alert and Oriented x 3, - - possible decreased sensation over L thigh, motor 5/5 in upper and lower extremities b/l Result Diagrams: 01/15/19 07:49 01/15/19 07:49 Assess/Plan/Problems-Billing Assessment: 63M with chronic LBP s/p spinal surgery at [facility] 12/06/2018, recent admission for back pain after surgery, also with 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 No signs of infection. - Patient Problems (1) Back pain Comment: s/p T10-S lumbar fusion [facility] 12/06, re-presents with worsening back pain. Low suspicion for infection. Not improving with med increases. 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 - Pain Consult not on service until 01/23 (4) Hypertension Comment: - holding home losartan 50 in setting of hypotension (5) DVT prophylaxis Comment: lovenox (6) Full code status Current Visit: No Status: Acute Code(s): Z78.9 - OTHER SPECIFIED HEALTH STATUS SNOMED Code(s): 891330190
[2019-01-17 18:24] LABS: Folate 13.88 ng/mL (>3.99)
--- NOTE | 2019-01-17 20:23 | PN ---
Progress Note - Progress Note Date of Service: 01/17/19 Note: Patient seen and examined. Please see details in Neurosurgery consultation note. In short patient had surgery on Dec [address] Burgos in [facility] for a T10 to pelvis instrumentation and fusion. Patient did quite well after surgery until a few weeks ago when he was admitted for pain control. Patient continue to improve until five days ago when he was reported to have sustained a fall in the bathroom. No LOC, No LOM, No neck pain. Patient developed muscle spasms and back pain. Due to his pain he was not able to keep the follow up appointment and was admitted to [facility] for pain control. Patient reports weakness of both LEs over the last few days. Has chronic numbness in both LEs present since surgery that is stable. Patient has difficulty with ambulation and needs two people assistance to go to the bathroom. He reports that he has difficulty with his balance. Denies urinary or GI incontinence. Denies loss of perineal sensation. On Physical exam: Wound s,c,d. AAOx3, SANGITA, CN II-XII grossly intact Motor 4-5/5 UEs, 4-/5 LEs, possibly antalgic Sensory grossly intact to light touch, except decreased sensation bellow L3 and in hands bilaterally. position sensation decreased in LEs bilaterally. DTR +3 bilaterally. No clonus, No Babinski. No TTP C/T/L spine. Free ROM c spine. CT revealed postoperative changes in T/L spine without obvious hardware failure. Possible progression of thoracic kyphosis in supine position. Scoliosis XR reveals maintenance of spinopelvic parameters with thoracic kyphosis and positive SVA. Measurements somewhat limited due to image quality. MRI of T spine reveals Thoracic kyphosis with cord signal changes at T8-9. No previous image available for comparison. MRI of L spine reveals postoperative changes. Inflammatory markers not indicative of infection. Discussed in extend with patient regarding imaging findings. Discussed the possibility of myelopathy and need for additional procedures. Patient reports that Dr Burgos has reviewed films and does not think that further surgical intervention is needed. Would recommend pain control for now and follow up with Dr Burgos. Fall precautions. Will follow. Appreciate care. Caroline Payne MD
[2019-01-17] MEDS: Enoxaparin(*) 40 MG/0.4 ML SYR SUBCUT SCH (20:41)
[2019-01-17] MEDS: Polyethylene Glycol 3350* 17 GM PACKET PO SCH (20:42)
[2019-01-18] MEDS: oxyCODONE TAB* 5 MG TAB PO PRN ×4 (04:23→20:25)
[2019-01-18] MEDS: Pregabalin CAP(*) 25 MG PO SCH ×3 (09:16→20:24)
[2019-01-18] MEDS: predniSONE TAB* 20 MG PO SCH (09:17)
[2019-01-18] MEDS: Lidocaine PATCH 5%* 1 PATCH TRANSDERM SCH (09:18)
[2019-01-18] MEDS: Docusate CAP* 100 MG PO SCH ×2 (09:18→20:25)
[2019-01-18] MEDS: oxyCODONE SR TAB(*) 20 MG TAB.SR PO SCH ×2 (09:18→20:25)
[2019-01-18] MEDS: busPIRone TAB* 5 MG PO SCH (09:18)
--- NOTE | 2019-01-18 09:44 | PN ---
Subjective Date of Service: 01/18/19 Interval History: Pt is feeling slightly better today than yesterday. He had 1 spasm just before midnight last night and only 1 spasm so far today. He states a nurse made a loud sound by banging the garbage can and that previously would have lead to a spasm and it did not this time. Sitting forward did not cause a spasm. He has not worked with PT yet today. He had a BM last evening. Objective Active Medications: Baclofen (Lioresal Tab*) 20 mg PO TID PRN PRN Reason: SPASMS - MUSCLE Last Admin: 01/17/19 20:41 Dose: 20 mg Cyclobenzaprine HCl (Flexeril Tab*) 10 mg PO BID PRN PRN Reason: muscle spasm Last Admin: 01/17/19 20:41 Dose: 10 mg Diazepam (Valium Tab(*)) 2.5 mg PO Q8H [facility] Docusate Sodium (Colace Cap*) 100 mg PO BID [facility] Last Admin: 01/18/19 09:18 Dose: 100 mg Enoxaparin Sodium (Lovenox(*)) 40 mg SUBCUT BEDTIME [facility] Last Admin: 01/17/19 20:41 Dose: 40 mg Fluticasone Propionate (Flonase Nasal [place] 50mcg*) 2 spray BOTH NARES DAILY PRN PRN Reason: Allergy Symptoms Lidocaine (Lidoderm 5% Patch*) 1 patch TRANSDERM DAILY [facility] Last Admin: 01/18/19 09:18 Dose: 1 patch Ondansetron HCl (Zofran Inj*) 4 mg IV Q4H PRN PRN Reason: NAUSEA/VOMITING Oxycodone HCl (Oxycontin(*)) 20 mg PO Q12HR [facility] Last Admin: 01/18/19 09:18 Dose: 20 mg Oxycodone HCl (Roxycodone Tab*) 15 mg PO Q4H PRN PRN Reason: PAIN - MODERATE Last Admin: 01/18/19 04:23 Dose: 15 mg Pharmacy Profile Note (Lidocaine Patch Remove*) 1 note PATCH OFF 2100 [facility] Last Admin: 01/17/19 21:23 Dose: 1 note Polyethylene Glycol/Electrolytes (Miralax*) 17 gm PO BEDTIME [facility] Last Admin: 01/17/19 20:42 Dose: 17 gm Prednisone (Deltasone Tab*) 60 mg PO DAILY [facility] Stop: 01/21/19 09:01 Last Admin: 01/18/19 09:17 Dose: 60 mg Pregabalin (Lyrica Cap(*)) 75 mg PO TID [facility] Last Admin: 01/18/19 09:16 Dose: 75 mg Senna (Senokot 8.6 Mg Tab*) 1 tab PO BEDTIME PRN PRN Reason: if no BM during day Vital Signs - 8 hr 01/18/19 01/18/19 01/18/19 03:59 04:23 06:25 Temperature 97.7 F Pulse Rate 62 Respiratory 17 16 12 Rate Blood Pressure 115/61 (mmHg) O2 Sat by Pulse 97 Oximetry 01/18/19 01/18/19 01/18/19 07:22 08:00 08:26 Temperature 97.3 F 97.4 F Pulse Rate 75 68 Respiratory 16 14 12 Rate Blood Pressure 138/76 142/72 (mmHg) O2 Sat by Pulse 100 96 Oximetry 01/18/19 01/18/19 09:16 09:18 Temperature Pulse Rate Respiratory 14 14 Rate Blood Pressure (mmHg) O2 Sat by Pulse Oximetry Oxygen Devices in Use Now: None Appearance: Middle aged male sitting up in bed, NAD Eyes: No Scleral Icterus Ears/Nose/Mouth/Throat: Mucous Membranes Moist Respiratory: Symmetrical Chest Expansion and Respiratory Effort, Clear to Auscultation Cardiovascular: NL Sounds; No Murmurs; No JVD, RRR, No Edema, - - dependent edema in the flanks Abdominal: NL Sounds; No Tenderness; No Distention Extremities: No Clubbing, Cyanosis Skin: No Nodules or Sclerosis Neurological: Alert and Oriented x 3, NL Muscle Strength and Tone Result Diagrams: 01/15/19 07:49 01/15/19 07:49 Assess/Plan/Problems-Billing 63M with chronic LBP s/p extensive lumbar fusion surgery at [facility] 12/06/2018, recent admission for back pain after surgery, also with h/o high- voltage electrocution and HTN, re-presents with back pain preventing ability to care for self. - Patient Problems (1) Back pain Current Visit: Yes Status: Acute Code(s): M54.9 - DORSALGIA, UNSPECIFIED SNOMED Code(s): 373840943 Comment: Pt with acute on chronic back pain. No signs of infection. Likely acute exacerbation following fall last week. Continue oxycontin 20mg BID (home dose) and oxycodone 15mg q4hr prn breakthrough pain. He states if he did not have spasms he would be able to manage with the pain at its current level. He is encouraged by the fact he has had far fewer spasms today than yesterday. Continue baclofen 20mg TID prn spasm, prn flexeril. Trial valium as above. Continue prednisone as he thinks there may be some improvement after starting this yesterday. Await repeat PT eval today to determine how he is doing walking. (2) Anxiety Current Visit: Yes Status: Acute Code(s): F41.9 - ANXIETY DISORDER, UNSPECIFIED SNOMED Code(s): 82063612 Comment: I am going to trial valium instead of buspar as there are antispasmodic properties to the medication and it may help with both anxiety and spasms. Will start 2.5mg TID for now and as his spasms improve he can taper to a prn then hopefully ultimately discontinue completely. (3) Hypertension Current Visit: Yes Status: Acute Code(s): I10 - ESSENTIAL (PRIMARY) HYPERTENSION SNOMED Code(s): 39989505 Comment: BP in normal range. Continue to hold losartan for now. (4) DVT prophylaxis Current Visit: Yes Status: Acute Code(s): Z29.9 - ENCOUNTER FOR PROPHYLACTIC MEASURES, UNSPECIFIED SNOMED Code(s): 146752680 Comment: lovenox (5) Full code status Current Visit: Yes Status: Acute Code(s): Z78.9 - OTHER SPECIFIED HEALTH STATUS SNOMED Code(s): 532013231
[2019-01-18] MEDS: Diazepam TAB(*) 5 MG PO SCH ×2 (10:19→17:46)
[2019-01-18] MEDS: Cyclobenzaprine TAB* 10 MG PO PRN (11:36)
[2019-01-18] MEDS: Baclofen TAB* 20 MG PO PRN (11:37)
[2019-01-18] MEDS: Polyethylene Glycol 3350* 17 GM PACKET PO SCH (20:26)
[2019-01-18] MEDS: Enoxaparin(*) 40 MG/0.4 ML SYR SUBCUT SCH (20:48)
[2019-01-18] MEDS: Lidocaine Patch REMOVE* 1 NOTE MISC PATCH OFF SCH (20:50)
[2019-01-19] MEDS: Diazepam TAB(*) 5 MG PO SCH ×3 (02:55→18:09)
[2019-01-19] MEDS: oxyCODONE TAB* 5 MG TAB PO PRN ×5 (02:56→21:55)
[2019-01-19] MEDS: Pregabalin CAP(*) 25 MG PO SCH ×3 (08:56→20:40)
[2019-01-19] MEDS: predniSONE TAB* 20 MG PO SCH (08:57)
[2019-01-19] MEDS: oxyCODONE SR TAB(*) 20 MG TAB.SR PO SCH ×2 (09:01→20:41)
[2019-01-19] MEDS: Docusate CAP* 100 MG PO SCH ×2 (09:01→20:41)
[2019-01-19] MEDS: Lidocaine PATCH 5%* 1 PATCH TRANSDERM SCH (09:30)
--- NOTE | 2019-01-19 09:49 | PN ---
Subjective Date of Service: 01/19/19 Interval History: Pt is feeling better today but seems to minimize his improvement stating that he is "a little" better. Nursing documents he has had a substantial reduction in the number of spasms he was having. He tells me he ambulated around the entire unit yesterday. Objective Active Medications: Baclofen (Lioresal Tab*) 20 mg PO TID PRN PRN Reason: SPASMS - MUSCLE Last Admin: 01/18/19 11:37 Dose: 20 mg Cyclobenzaprine HCl (Flexeril Tab*) 10 mg PO BID PRN PRN Reason: muscle spasm Last Admin: 01/18/19 11:36 Dose: 10 mg Diazepam (Valium Tab(*)) 2.5 mg PO Q8H [facility] Last Admin: 01/19/19 08:58 Dose: 2.5 mg Docusate Sodium (Colace Cap*) 100 mg PO BID [facility] Last Admin: 01/19/19 09:01 Dose: 100 mg Enoxaparin Sodium (Lovenox(*)) 40 mg SUBCUT BEDTIME [facility] Last Admin: 01/18/19 20:48 Dose: 40 mg Fluticasone Propionate (Flonase Nasal [place] 50mcg*) 2 spray BOTH NARES DAILY PRN PRN Reason: Allergy Symptoms Lidocaine (Lidoderm 5% Patch*) 1 patch TRANSDERM DAILY [facility] Last Admin: 01/19/19 09:30 Dose: 1 patch Ondansetron HCl (Zofran Inj*) 4 mg IV Q4H PRN PRN Reason: NAUSEA/VOMITING Oxycodone HCl (Oxycontin(*)) 20 mg PO Q12HR [facility] Last Admin: 01/19/19 09:01 Dose: 20 mg Oxycodone HCl (Roxycodone Tab*) 15 mg PO Q4H PRN PRN Reason: PAIN - MODERATE Last Admin: 01/19/19 08:29 Dose: 15 mg Pharmacy Profile Note (Lidocaine Patch Remove*) 1 note PATCH OFF 2100 [facility] Last Admin: 01/18/19 20:50 Dose: 1 note Polyethylene Glycol/Electrolytes (Miralax*) 17 gm PO BEDTIME [facility] Last Admin: 01/18/19 20:26 Dose: 17 gm Prednisone (Deltasone Tab*) 60 mg PO DAILY [facility] Stop: 01/21/19 09:01 Last Admin: 01/19/19 08:57 Dose: 60 mg Pregabalin (Lyrica Cap(*)) 75 mg PO TID [facility] Last Admin: 01/19/19 08:56 Dose: 75 mg Senna (Senokot 8.6 Mg Tab*) 1 tab PO BEDTIME PRN PRN Reason: if no BM during day Vital Signs - 8 hr 01/19/19 01/19/19 01/19/19 02:55 02:56 03:32 Temperature 97.9 F Pulse Rate 69 Respiratory 18 18 18 Rate Blood Pressure 129/71 (mmHg) O2 Sat by Pulse 98 Oximetry 01/19/19 01/19/19 01/19/19 07:55 07:56 08:00 Temperature 98.0 F Pulse Rate 67 Respiratory 14 14 14 Rate Blood Pressure 140/74 (mmHg) O2 Sat by Pulse 97 Oximetry 01/19/19 01/19/19 01/19/19 08:29 08:30 08:40 Temperature Pulse Rate Respiratory 14 14 14 Rate Blood Pressure (mmHg) O2 Sat by Pulse Oximetry 01/19/19 01/19/19 01/19/19 08:56 08:58 09:01 Temperature Pulse Rate Respiratory 14 14 14 Rate Blood Pressure (mmHg) O2 Sat by Pulse Oximetry Oxygen Devices in Use Now: None Appearance: Middle aged male sitting up in bed, NAD Eyes: No Scleral Icterus Ears/Nose/Mouth/Throat: Mucous Membranes Moist Respiratory: Symmetrical Chest Expansion and Respiratory Effort, Clear to Auscultation - anteriorly and laterally Cardiovascular: NL Sounds; No Murmurs; No JVD, RRR, - - 1+ ankle edema Abdominal: NL Sounds; No Tenderness; No Distention Extremities: No Clubbing, Cyanosis Skin: No Nodules or Sclerosis Neurological: Alert and Oriented x 3 Result Diagrams: 01/15/19 07:49 01/15/19 07:49 Assess/Plan/Problems-Billing 63M with chronic LBP s/p extensive lumbar fusion surgery at [facility] 12/06/2018, recent admission for back pain after surgery, also with h/o high- voltage electrocution and HTN, re-presents with back pain preventing ability to care for self. - Patient Problems (1) Back pain Current Visit: Yes Status: Acute Code(s): M54.9 - DORSALGIA, UNSPECIFIED SNOMED Code(s): 923722463 Comment: Pt with acute on chronic back pain and spasms. Acute exacerbation following fall last week. Continue oxycontin 20mg BID (home dose) and oxycodone 15mg q4hr prn breakthrough pain. He states if he did not have spasms he would be able to manage with the pain at its current level and his pain has stayed stable around a 4-5. Spasm frequency seems to have markedly improved over the last 24hr. Continue baclofen 20mg TID prn spasm, prn flexeril and valium 2.5mg q8hr. Continue prednisone as he thinks there may be some improvement after starting this yesterday. Pt improved with ambulation per PT, will attempt stairs today. I feel that he is close to being ready for d/c (likely tomorrow after working with PT). (2) Anxiety Current Visit: Yes Status: Acute Code(s): F41.9 - ANXIETY DISORDER, UNSPECIFIED SNOMED Code(s): 10533538 Comment: Continue valium 2.5mg po TID for now and as his spasms improve he can taper to a prn then hopefully ultimately discontinue completely. This will also work for his anxiety. (3) Hypertension Current Visit: Yes Status: Acute Code(s): I10 - ESSENTIAL (PRIMARY) HYPERTENSION SNOMED Code(s): 93388261 Comment: Resume losartan. (4) DVT prophylaxis Current Visit: Yes Status: Acute Code(s): Z29.9 - ENCOUNTER FOR PROPHYLACTIC MEASURES, UNSPECIFIED SNOMED Code(s): 554107852 Comment: lovenox (5) Full code status Current Visit: Yes Status: Acute Code(s): Z78.9 - OTHER SPECIFIED HEALTH STATUS SNOMED Code(s): 849474262
[2019-01-19] MEDS: Baclofen TAB* 20 MG PO PRN ×2 (10:06→18:08)
[2019-01-19] MEDS: Cyclobenzaprine TAB* 10 MG PO PRN ×2 (10:06→18:09)
[2019-01-19] MEDS: Polyethylene Glycol 3350* 17 GM PACKET PO SCH (20:42)
[2019-01-19] MEDS: Lidocaine Patch REMOVE* 1 NOTE MISC PATCH OFF SCH (20:44)
[2019-01-19] MEDS: Enoxaparin(*) 40 MG/0.4 ML SYR SUBCUT SCH (20:44)
[2019-01-20] MEDS: Diazepam TAB(*) 5 MG PO SCH ×4 (01:57→21:40)
[2019-01-20] MEDS: Baclofen TAB* 20 MG PO PRN (01:58)
[2019-01-20] MEDS: oxyCODONE TAB* 5 MG TAB PO PRN ×5 (01:58→20:37)
[2019-01-20] MEDS: Cyclobenzaprine TAB* 10 MG PO PRN ×2 (07:04→22:51)
[2019-01-20] MEDS: oxyCODONE SR TAB(*) 20 MG TAB.SR PO SCH ×2 (09:48→21:41)
[2019-01-20] MEDS: Pregabalin CAP(*) 25 MG PO SCH ×3 (09:48→21:40)
[2019-01-20] MEDS: Docusate CAP* 100 MG PO SCH ×2 (09:48→21:40)
[2019-01-20] MEDS: predniSONE TAB* 20 MG PO SCH (09:48)
[2019-01-20] MEDS: Lidocaine PATCH 5%* 1 PATCH TRANSDERM SCH (09:49)
--- NOTE | 2019-01-20 13:39 | PN ---
"Progress Note - Progress Note Date of Service: 01/20/19 Note: Time spent on discharge including exam of patient, discussion with patient, , daughter, nurse, CM, pharmacist, review of EHR and preparation of discharge documents is 50 minutes. Search Terms: juanita ellington, 1955 Search Date: 01/20/2019 01:20:55 PM The Drug Utilization Report below displays all of the controlled substance prescriptions, if any, that your patient has filled in the last twelve months. The information displayed on this report is compiled from pharmacy submissions to the Department, and accurately reflects the information as submitted by the pharmacies. This report was requested by: Eleuterio Davis | Reference #: [id number] Others' Prescriptions Patient Name: Juanita Ellington Date: 1955 Address: [address] [place] [address] Sex: Male Rx Written Rx Dispensed Drug Quantity Days Supply Prescriber Name 01/03/2019 01/05/2019 pregabalin 75 mg capsule 90 30 Kenrick Avilez MD 12/23/2018 12/23/2018 oxycodone hcl er 20 mg tablet 46 23 Justnya Lara 12/17/2018 12/17/2018 oxycodone hcl 5 mg tablet 30 3 Boogie Bustamante 12/17/2018 12/17/2018 oxycodone hcl er 20 mg tablet 14 7 Boogie Bustamante Patient Name: Juanita Ellington Date: 1955 Address: [address] [place] [address] Sex: Male Rx Written Rx Dispensed Drug Quantity Days Supply Prescriber Name 12/19/2018 12/21/2018 oxycodone hcl 15 mg tablet 120 30 Justyna Lara 12/01/2018 12/05/2018 oxycodone-acetaminophen 5-325 mg tab 180 30 Kenrick Avilez MD 06/21/2018 11/25/2018 pregabalin 75 mg capsule 90 30 Kenrick Avilez MD 11/03/2018 11/04/2018 oxycodone-acetaminophen 5-325 mg tab 180 30 Kenrick Avilez MD 06/21/2018 10/26/2018 pregabalin 75 mg capsule 90 30 Kenrick Avilez MD 09/30/2018 10/04/2018 oxycodone-acetaminophen 5-325 mg tab 180 30 Wendiezgilberto, Kenrick Aquino MD 06/21/2018 09/24/2018 lyrica 75 mg capsule 90 30 Skezas, Kenrick Aquino MD 08/26/2018 09/01/2018 oxycodone-acetaminophen 5-325 mg tab 180 30 Skezas, Kenrick Aquino MD 06/21/2018 08/25/2018 lyrica 75 mg capsule 90 30 Skezas, Kenrick Aquino MD 08/02/2018 08/20/2018 oxycodone-acetaminophen 5-325 mg tab 60 10 Skezas, Kenrick Aquino MD 07/26/2018 07/31/2018 oxycodone-acetaminophen 5-325 mg tab 120 20 Skezas, Kenrick Aquino MD 06/21/2018 07/25/2018 lyrica 75 mg capsule 90 30 Skezas, Kenrick Aquino MD 06/30/2018 07/01/2018 oxycodone-acetaminophen 5-325 mg tab 120 30 Jona Levin R 06/21/2018 06/23/2018 lyrica 75 mg capsule 90 30 Skezas, Kenrick Aquino MD 05/27/2018 05/31/2018 oxycodone-acetaminophen 5-325 mg tab 120 30 Skezas, Kenrick Aquino MD 12/17/2017 05/24/2018 lyrica 75 mg capsule 90 30 Skezas, Kenrick Aquino MD 05/01/2018 05/01/2018 oxycodone-acetaminophen 5-325 mg tab 120 30 Skezas, Kenrick Aquino MD 12/17/2017 04/27/2018 lyrica 75 mg capsule 90 30 Skezas, Kenrick Aquino MD 03/30/2018 03/31/2018 oxycodone-acetaminophen 5-325 mg tab 120 30 Skezas, Kenrick Aquino MD 12/17/2017 03/23/2018 lyrica 75 mg capsule 90 30 Skezas, Kenrick Aquino MD 02/25/2018 02/28/2018 oxycodone-acetaminophen 5-325 mg tab 120 30 Skezas, Kenrick Aquino MD 12/17/2017 02/21/2018 lyrica 75 mg capsule 90 30 Skezas, Kenrick Aquino MD 01/25/2018 01/29/2018 oxycodone-acetaminophen 5-325 mg tablet 120 30 Skezas, Kenrick Aquino MD"
[2019-01-20] MEDS: Baclofen TAB* 20 MG PO SCH ×2 (14:12→21:40)
--- NOTE | 2019-01-20 16:03 | DS ---
CC: Dr. Avilez DISCHARGE SUMMARY: DATE OF ADMISSION: DATE OF DISCHARGE: 01/21/19 HISTORY OF PRESENT ILLNESS: This 63-year-old man presented with back pain, he had surgery at [facility] on 12/06/18. I believe he had a multilevel spinal fusion. He had a subsequent fall. He w as in the emergency room for evaluation more than once. He was evaluated with a CT scan of the lumbar spine. He was seen in consultation by Dr. Payne, who will coordinate his care with his orthopedic surgeon in [facility]. The patient did have some relief with a combination of an increase in his baclofen dose, a 5 day cour se of prednisone which will finish on the day of discharge, institution of diazepam 2.5 mg t.i.d. as well as starting cyclobenzaprine. The patient will continue on his short and long acting oxycodone, which he has enough at home. He wa s given prescriptions for the 3 drugs mentioned above. FINAL DIAGNOSES: 1. Back pain. 2. Anxiety. 3. Hypertension. DISCHARGE MEDICATIONS: 1. Baclofen 20 mg t.i.d. 2. Cyclobenzaprine 10 mg b.i.d. p.r.n. 3. Diazepam 2.5 mg t.i.d. 4. Senna 8.6 mg h.s. p.r.n. 5. Mometasone nasal spray 2 sprays both nares daily p.r.n. 6. Tadalafil 20 mg p.r.n. 7. Polyethylene glycol 17 grams daily. 8. Pregabalin 75 mg t.i.d. 9. Docusate 100 mg b.i.d. 10. Naloxone nasal spray as prescribed. 11. Bifidobacterium infantis 4 mg daily. 12. Acetaminophen 650 mg every 6 hours p.r.n. 13. Lidocaine patch apply daily. 14. Oxycodone SR 20 mg b.i.d. 15. Oxycodone 5 mg as prescribed. CONDITION ON DISCHARGE: Stable. DISPOSITION ON DISCHARGE: Discharged home. [id number]/[facility] #: [id number]
[2019-01-20] MEDS ORDERED: Diazepam TAB(*) 5 MG PO SCH (21:00)
[2019-01-20] MEDS: Lidocaine Patch REMOVE* 1 NOTE MISC PATCH OFF SCH (21:41)
[2019-01-20] MEDS: Polyethylene Glycol 3350* 17 GM PACKET PO SCH (21:41)
[2019-01-20] MEDS: Enoxaparin(*) 40 MG/0.4 ML SYR SUBCUT SCH (21:41)
[2019-01-21] MEDS: oxyCODONE TAB* 5 MG TAB PO PRN ×5 (01:57→21:38)
[2019-01-21] MEDS: oxyCODONE SR TAB(*) 20 MG TAB.SR PO SCH ×2 (09:55→21:33)
[2019-01-21] MEDS: Pregabalin CAP(*) 25 MG PO SCH ×3 (09:55→21:37)
[2019-01-21] MEDS: Diazepam TAB(*) 5 MG PO SCH ×3 (09:56→21:34)
[2019-01-21] MEDS: Baclofen TAB* 20 MG PO SCH ×3 (09:56→21:33)
[2019-01-21] MEDS: Docusate CAP* 100 MG PO SCH ×2 (09:57→21:33)
[2019-01-21] MEDS: predniSONE TAB* 20 MG PO SCH (09:58)
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
[2019-01-21] MEDS: Cyclobenzaprine TAB* 10 MG PO PRN ×2 (12:00→18:14)
[2019-01-21] MEDS: Lidocaine PATCH 5%* 1 PATCH TRANSDERM SCH (14:24)
[2019-01-21] MEDS: Enoxaparin(*) 40 MG/0.4 ML SYR SUBCUT SCH (21:33)
[2019-01-21] MEDS: Polyethylene Glycol 3350* 17 GM PACKET PO SCH (21:33)
[2019-01-21] MEDS: Lidocaine Patch REMOVE* 1 NOTE MISC PATCH OFF SCH (21:43)
[2019-01-22] MEDS: oxyCODONE TAB* 5 MG TAB PO PRN ×3 (01:26→09:41)
[2019-01-22 07:26] VITALS: BP 122/67
[2019-01-22] MEDS: Diazepam TAB(*) 5 MG PO SCH (08:47)
[2019-01-22] MEDS: Baclofen TAB* 20 MG PO SCH (08:48)
[2019-01-22] MEDS: oxyCODONE SR TAB(*) 20 MG TAB.SR PO SCH (08:48)
[2019-01-22] MEDS: Docusate CAP* 100 MG PO SCH (08:48)
[2019-01-22] MEDS: Pregabalin CAP(*) 25 MG PO SCH (08:49)
[2019-01-22] MEDS: Lidocaine PATCH 5%* 1 PATCH TRANSDERM SCH (08:52)
[2019-01-22] MEDS: Cyclobenzaprine TAB* 10 MG PO PRN (09:40)
[2019-01-22] MEDS ORDERED: HYDROmorphone INJ* 0.5 MG/0.5 ML SYRINGE IV SLOW PU ONE (11:20)
== END 2019-01-22 11:46 | disposition home health service (06) | DRG 347 ==
LOC: ED 10:02 → SSU 18:46 → OBSVTOIN 01-15 15:53 → SSU 01-17 10:55
PROVIDERS: ADMIT Internal Medicine; ATTEND Internal Medicine
DX: M54.5 Low back pain (principal); I10 Essential (primary) hypertension; E78.00 Pure hypercholesterolemia, unspecified; F41.9 Anxiety disorder, unspecified; G89.29 Other chronic pain; I95.9 Hypotension, unspecified; M62.830 Muscle spasm of back; M40.204 Unspecified kyphosis, thoracic region; R20.0 Anesthesia of skin; W19.XXXA Unspecified fall, initial encounter; M48.061 Spinal stenosis, lumbar region without neurogenic claudication; Z72.89 Other problems related to lifestyle; Y92.9 Unspecified place or not applicable; Z98.1 Arthrodesis status; Z28.21 Immunization not carried out because of patient refusal; Z88.6 Allergy status to analgesic agent; Z87.891 Personal history of nicotine dependence; Z79.891 Long term (current) use of opiate analgesic; Z79.899 Other long term (current) drug therapy
CPT/HCPCS: 36415; 72081; 72129; 72132; 72157; 72158; 80048; 80053; 81003; 82607; 82746; 85025; 85652; 86140; 93005; 96374; 96375; 96376; 97530; 99285; A9270-GY; A9579; G0378; J1170; J1200; J1650; J2270; J7512; Q9967

== ENCOUNTER 2019-01-25 16:20 | Observation (INO) | payer BC, MEDICARE, OTHER ==
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
[2019-01-25] MEDS ORDERED: NS 0.9% 1000 ML** 1,000 ML IV ONE (17:58)
[2019-01-25] MEDS ORDERED: HYDROmorphone INJ* 0.5 MG/0.5 ML SYRINGE IV ONE ×2 (17:59→21:14)
[2019-01-25] MEDS ORDERED: HYDROmorphone INJ* 0.5 MG/0.5 ML SYRINGE IM ONE (18:27)
--- OUTSIDE RECORDS SUMMARY | 2019-01-25 18:37 | XMS REPORT ---
:1955 Author Organization [facility] Care Team Providers Name Role Phone Unavailable Unavailable Unavailable Problems This patient has no known problems. Allergies, Adverse Reactions, Alerts Allergy Allergy Type Status Severity Reaction(s) Onset Inactive Treating Comments Name Date Date Clinician aspirin Base Active Unknown Reaction 2018-03 Interface Ingredient Unknown 03-22 naproxen Base Active Unknown Reaction 2018-03 Unknown Ingredient Unknown 03-22 Medications Ordered Filled Start Stop Current Ordering Indication Dosage Frequency Signature Comments Components Medication Medication Date Date Medication? Clinician (SIG) Name Name baclofen 10 baclofen 10 2018-03- Yes Unknown Unknown Unknown mg tablet mg tablet 0-01-20 Tadalafil Tadalafil 2018-03 Yes Unknown Unknown Unknown (Nf) (Nf) 0-08 losartan 25 losartan 25 2018-03- Yes Unknown Unknown Unknown mg tablet mg tablet 0-08 15 docusate docusate 2018-03 Yes Unknown Unknown Unknown sodium 100 sodium 100 0-08 mg capsule mg capsule Naloxone Naloxone 2018-03 Yes Unknown Unknown Unknown Nasal Nasal 0-08 Lowber* Lowber* Mometasone Mometasone 2018-03 Yes Unknown Unknown Unknown Nasal (Nf) Nasal (Nf) 0-08 Procedures This patient has no known procedures. Results This patient has no known results.
--- OUTSIDE RECORDS SUMMARY | 2019-01-25 18:37 | XMS REPORT | Continuity of Care Document ---
:1955 External Reference #:[id number] Author Name Sterling Cho M.D. 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 Onset: 2014 Enthesopathy of hip region Alma Coppola M.D. Onset: 10/15/2014 Localized, primary osteoarthritis Alma Coppola M.D. Onset: 08/14/2015 Knee pain Alma Coppola M.D. Onset: 08/28/2015 Knee joint effusion Gold David PA-C Onset: 11/02/2018 Social History Type Date Description Comments Sex [...] Indications Ordering Provider Date Synvisc Or Synvisc-One Gold David PA-C 11/02/2018 Injection 1 MG- Pt brought in, no bill Injection Synvisc Or Synvisc-One Gold David PA-C 11/02/2018 Injection 1 MG- Pt brought in, no bill Injection Synvisc Or Synvisc-One Alma Coppola M.D. 10/26/2018 Injection 1 MG Injection Synvisc Or Synvisc-One Alma Coppola M.D. 10/26/2018 [...] 1 MG Injection Synvisc Or Synvisc-One Alma Adbon, Carliat 09/04/2015 Injection 1 MG Injection Synvisc Or Synvisc-One Alma Abdon, Carlita 08/28/2015 Injection 1 MG Injection Synvisc Or Synvisc-One Alma Coppola M.D. 08/28/2015 Injection 1 MG Injection Celestone 3 mg and 3mg Maria Isabel Davis-Young, 11/14/2014 Injection M.D. Depomedrol 80MG Alma Coppola, Carlita 10/15/2014 Injection Synvisc Or Synvisc-One Alma Coppola M.D. 07/23/2014 Injection 1 MG Injection Synvisc Or Synvisc-One Alma Carlita Coppola 07/16/2014 Injection 1 MG Injection Synvisc Or Synvisc-One Alma Coppola M.D. 07/09/2014 Injection 1 MG Injection Celestone 3 mg and 3mg Maria Isabel Davis-Young, 01/03/2014 Injection M.DFercho Synvisc Or Synvisc-One Alma Coppola M.D. 11/24/2013 Injection 1 MG Injection Synvisc Or Synvisc-One Alma Coppola, Carlita 11/17/2013 Injection 1 MG Injection Synvisc Or Synvisc-One Alma Coppola M.D. 11/10/2013 Injection 1 MG Injection Synvisc Or Synvisc-One Lama Abdon, Carlita 10/27/2013 Injection 1 MG Injection Synvisc Or Synvisc-One Alma Abdon, Carlita 10/20/2013 Injection 1 MG Injection Synvisc Or Synvisc-One Alma Coppola, Carlita 10/13/2013 Injection 1 MG Injection Synvisc Or Synvisc-One Alma Carlita Coppola 04/10/2013 Injection 1 MG Injection Synvisc Or Synvisc-One Alma Coppola, Carlita 04/03/2013 Injection 1 MG Injection Synvisc Or Synvisc-One Alma Abdon, M.D. 03/27/2013 Injection 1 MG Injection Depomedrol [...] Information Available Procedures Date Code Description Status 11/02/2018 51530 Inject/Drain Joint/Bursa Major W/O US Completed 10/26/2018 40793 Inject/Drain Joint/Bursa Major W/O US Completed 10/19/2018 69871 Inject/Drain Joint/Bursa Major W/O US Completed Medical Devices Description No Information Available Encounters Type Date Location Provider Dx Diagnosis Office Visit 12/17/2018 [facility] Boogie Bustamante, M54.9 Dorsalgia, 2:39p Assoc,pc [place] unspecified Hospitalists G89.29 Other chronic pain I10 Essential (primary) hypertension Office Visit 12/16/2018 2:39p [facility] Boogie M54.9 Dorsalgia, Assoc,pc [place] unspecified Hospitalists G89.29 Other chronic pain I10 Essential (primary) hypertension Office Visit 12/15/2018 2:38p [facility] Boogie M54.9 Dorsalgia, Assoc,pc [place] unspecified Hospitalists G89.29 Other chronic pain I10 Essential (primary) hypertension Office Visit 12/13/2018 [facility] Elaine M54.9 Dorsalgia, 2:37p Assoc,pc LALITA Howell unspecified Hospitalists I10 Essential (primary) hypertension Office Visit 09/19/2018 1:00p Matt Marquez M17.0 Bilateral primary Orthopedics at [place] Coppola osteoarthritis of [place] knee Assessments Date Code Description Provider 12/17/2018 M54.9 Dorsalgia, unspecified JACIEL Luong 12/17/2018 G89.29 Other chronic pain Boogie Bustamante, PA 12/17/2018 I10 Essential (primary) hypertension Boogie Bustamante, PA 12/16/2018 M54.9 Dorsalgia, unspecified Boogie Bustamante, PA 12/16/2018 G89.29 Other chronic pain Boogie Bustamante PA 12/16/2018 I10 Essential (primary) hypertension Boogie Bustamante, PA 12/15/2018 M54.9 Dorsalgia, unspecified Boogie Bustamante PA 12/15/2018 G89.29 Other chronic pain Boogie Bustamante, PA 12/15/2018 I10 Essential (primary) hypertension Boogie Bustamante, PA 12/14/2018 M54.9 Dorsalgia, unspecified Cele Vines, PA 12/14/2018 G89.29 Other chronic pain Cele [place], PA 12/14/2018 I10 Essential (primary) hypertension Cele [place], PA 12/13/2018 M54.9 Dorsalgia, unspecified Elaine Howell, LALITA 12/13/2018 I10 Essential (primary) hypertension Elaine Howell, [employer] 11/02/2018 M25.562 Pain in left knee Gold Rosano, PA-C 11/02/2018 M25.561 Pain in right knee Gold Rosano, PA-C 11/02/2018 M25.462 Effusion, left knee Gold Rosano, PA-C 11/02/2018 M17.0 Bilateral primary osteoarthritis of knee Gold Rosano, PA-C 11/02/2018 M25.461 Effusion, right knee Gold Rosano, PA-C 10/26/2018 M25.562 Pain in left knee [...] prnM25.561 Pain in right kneeM25.462 Effusion, left kneeM17.0 Bilateral primary osteoarthritis of kneeM25.461 Effusion, right kneeM25.562 Pain in left kneeFollow up:Follow up: prnM25.561 Pain in right kneeM25.462 Effusion, left kneeM17.0 Bilateral primary osteoarthritis of kneeM25.461 Effusion, right knee Functional Status Description No Information Available Mental Status Description No Information Available Referrals Description No Information Available
--- OUTSIDE RECORDS SUMMARY | 2019-01-25 18:37 | XMS REPORT ---
:1955 Author Organization [facility] Care Team Providers Name Role Phone Unavailable [...] Unknown Unknown mg tablet mg tablet 0-08 01-20 Tadalafil Tadalafil 2018-03 Yes Unknown Unknown Unknown (Nf) (Nf) 0-08 losartan 25 losartan 25 2018-03- Yes Unknown Unknown Unknown mg tablet mg tablet 0-08 15 docusate docusate 2018-03 Yes Unknown Unknown Unknown sodium 100 sodium 100 0-08 mg capsule mg capsule Naloxone Naloxone 2018-03 Yes Unknown Unknown Unknown Nasal Nasal 0-08 [place]* [place]* Mometasone Mometasone 2018-03 Yes Unknown Unknown Unknown Nasal (Nf) Nasal (Nf) 0-08 Procedures This patient has no known procedures. Results This patient has no known results.
--- OUTSIDE RECORDS SUMMARY | 2019-01-25 18:37 | XMS REPORT ---
:1955 Author Organization [facility] Care Team Providers Name Role Phone Unavailable Unavailable Unavailable Problems Condition Condition Condition Status Onset Resolution Last Treating Comments Name Details Category Date Date Treatment Clinician Date Cardio edema Cardiovasc Active 2018-03 Cheyanne ular 03-26 [place] 09:20: [id number] Cardio knowledge/s Cardiovasc Active 2018-03 Cheyanne kill ular 03-26 [place] deficit: pt 09:20: [id number] Cardio knowledge/s Cardiovasc Active 2018-03 Cheyanne kill ular 03-26 [place] deficit: cg 09:20: [id number] Respiratory dyspnea Respirator Active 2018-03 Cheyanne present y 03-26 [place] 09:20: [id number] Nutrition nutritional Nutrition Active 2018-03 Cheyanne restriction 03-26 [place] s 09:20: [id number] Elimination nausea/vomi Eliminatio Active 2018-03 Cheyanne ting n 03-26 [place] 09:20: [id number] Safety fall risk Safety Active 2018-03 Cheyanne factor 03-26 [place] present 09:20: [id number] 00 Safety risk for Safety Active 2018-03 Cheyanne hospitaliza 03-26 [place] tion 09:20: [id number] 00 Medication knowledge/s Meds Active 2018-03 Cheyanne kill 03-26 [place] deficit: pt 09:20: [id number] 00 Medication knowledge/s Meds Active 2018-03 Cheyanne kill 03-26 [place] deficit: cg 09:20: [id number] 00 Musculoskel transfer Musculoske Active 2018-03 Cheyanne etal assistance letal 03-26 [place] required 09:20: [id number] Musculoskel requires Musculoske Active 2018-03 Cheyanne etal human letal 03-26 [place] assist to 09:20: [id number] leave home 00 Allergies, Adverse Reactions, Alerts Allergy Allergy Type [...] Unknown mg tablet mg tablet 0-08 01-20 docusate docusate 2018-03 Yes Unknown Unknown Unknown sodium 100 sodium 100 0-08 mg capsule mg capsule Naloxone Naloxone 2018-03 Yes Unknown Unknown Unknown Nasal Nasal 0-08 [place]* [place]* Mometasone Mometasone 2018-03 Yes Unknown Unknown Unknown Nasal (Nf) Nasal (Nf) 0-08 Vital Signs Vital Name Observation Time Observation Value Comments SYSTOLIC mm[Hg] 2019-01-24 18:08:56 120 mm[Hg] mm[Hg] Method: Sit SYSTOLIC mm[Hg] 2019-01-24 18:08:56 126 mm[Hg] mm[Hg] Method: Stand DIASTOLIC mm[Hg] 2019-01-24 18:08:56 80 mm[Hg] mm[Hg] Method: Sit DIASTOLIC mm[Hg] 2019-01-24 18:08:56 80 mm[Hg] mm[Hg] Method: Stand PULSE 2019-01-24 18:08:56 88 /min /min RESP RATE 2019-01-24 18:08:56 14 /min /min TEMP 2019-01-24 18:08:56 98.7 [degF] Procedures This patient has no known procedures. Results This patient has no known results.
[2019-01-25 19:16] LABS: Urine Appearance Cloudy; Urine Bilirubin Negative (Negative); Urine Blood Negative (Negative); Urine Color Yellow; Urine Glucose Negative (Negative); Urine Ketones Negative (Negative); Urine Nitrite Negative (Negative); Urine Protein Negative (Negative); Urine Specific Gravity 1.006 (1.010-1.030); Urine Urobilinogen Negative (Negative)
[2019-01-25 20:46] LABS: ABS Eosinophils 0.1 10^3/ul (0-0.6); ABS Lymphocytes 1.2 10^3/ul (1.0-4.8); ABS Monocytes 0.5 10^3/ul (0-0.8); ABS Neutrophils 3.3 10^3/ul (1.5-7.7); Eosinophil % 1.8 %; Hematocrit 41 % (42-52); Hemoglobin 13.6 g/dL (14.0-18.0); Lymphocyte % 22.9 %; Mean Corpuscular HGB Conc 33 g/dL (31-36); Mean Corpuscular Hemoglobin 32 pg (27-31); Mean Corpuscular Volume 95 fL (80-94); Mean Platelet Volume 6.6 fL (7.4-10.4); Platelet Count 291 10^3/uL (150-450); Red Blood Count 4.29 10^6 /uL (4.18-5.48); Red Cell Distribution Width 15 % (10-15); White Blood Count 5.1 10^3/uL (3.5-10.8)
[2019-01-25 21:05] LABS: Albumin 3.1 g/dL (3.2-5.2); Albumin/Globulin Ratio 1.3 (1-3); C Reactive Protein 17.18 mg/L (<8.01); Calcium 8.2 mg/dL (8.6-10.3); EGFR African American 83.9 (>60); EGFR Non-African American 69.4 (>60); Globulin 2.3 g/dL (2-4); Potassium 3.8 mmol/L (3.5-5.0); Total Bilirubin 0.2 mg/dL (0.2-1.0); Total Protein 5.4 g/dL (6.4-8.9)
[2019-01-25] MEDS: oxyCODONE SR TAB(*) 20 MG TAB.SR PO SCH (21:30)
[2019-01-25 22:21] LABS: Erythrocyte Sed Rate 26 mm/Hr (0-19)
[2019-01-25] MEDS ORDERED: Morphine 4 MG/ML VIAL (1 ml) 4 MG/ML VIAL IV PRN (22:35)
[2019-01-25] MEDS ORDERED: Mometasone NASAL (NF) SPRAY BOTH NARES PRN (22:37)
[2019-01-25] MEDS ORDERED: Acetaminophen TAB* 325 MG PO PRN (22:37)
[2019-01-25] MEDS: oxyCODONE TAB* 5 MG TAB PO PRN (23:15)
[2019-01-26] MEDS ORDERED: Fluticasone NASAL SPRAY 50MCG* 16 gm SPRAY BTL BOTH NARES PRN (00:12)
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
[2019-01-26] MEDS: Pregabalin CAP(*) 25 MG PO SCH ×4 (01:57→21:21)
[2019-01-26] MEDS: LORazepam TAB(*) 0.5 MG PO PRN ×2 (01:59→08:18)
[2019-01-26] MEDS: Cyclobenzaprine TAB* 10 MG PO PRN (02:00)
[2019-01-26] MEDS: Baclofen TAB* 20 MG PO SCH ×4 (02:01→21:21)
[2019-01-26] MEDS: Polyethylene Glycol 3350* 17 GM PACKET PO PRN (02:06)
[2019-01-26] MEDS: Ondansetron INJ* 2 MG/ML VIAL IV PRN (03:08)
[2019-01-26] MEDS: Heparin VIAL(*) 5000 UNITS/ML VIAL (FIVE THOUSAND) SUBCUT SCH ×3 (07:12→21:22)
[2019-01-26] MEDS: oxyCODONE TAB* 5 MG TAB PO PRN ×3 (08:18→22:56)
[2019-01-26] MEDS: Losartan TAB* 25 MG PO SCH (09:22)
[2019-01-26] MEDS: oxyCODONE SR TAB(*) 20 MG TAB.SR PO SCH ×2 (09:24→21:21)
[2019-01-26] MEDS: Furosemide TAB* 20 MG PO SCH (09:26)
[2019-01-26] MEDS: Docusate CAP* 100 MG PO SCH ×2 (09:27→21:21)
[2019-01-26] MEDS ORDERED: oxyCODONE TAB* 5 MG TAB PO PRN (11:04)
[2019-01-26] MEDS ORDERED: Lidocaine PATCH 5%* 1 PATCH TRANSDERM SCH (12:00)
[2019-01-26] MEDS: Morphine INJ* 4 MG/ML 1 ML SYRINGE (NEW SYRINGE VERSION) IV PRN (14:49)
[2019-01-26] MEDS: Lidocaine PATCH 5%* 1 PATCH TRANSDERM SCH (14:55)
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
[2019-01-26] MEDS: Lidocaine Patch REMOVE* 1 NOTE MISC SCH (22:55)
[2019-01-27] MEDS: oxyCODONE TAB* 5 MG TAB PO PRN ×5 (03:34→21:55)
[2019-01-27] MEDS: Heparin VIAL(*) 5000 UNITS/ML VIAL (FIVE THOUSAND) SUBCUT SCH ×3 (05:26→21:56)
[2019-01-27] MEDS: Losartan TAB* 25 MG PO SCH (09:09)
[2019-01-27] MEDS: Polyethylene Glycol 3350* 17 GM PACKET PO PRN (09:24)
[2019-01-27] MEDS: Pregabalin CAP(*) 25 MG PO SCH ×3 (09:25→20:33)
[2019-01-27] MEDS: Baclofen TAB* 20 MG PO SCH ×3 (09:25→20:33)
[2019-01-27] MEDS: oxyCODONE SR TAB(*) 20 MG TAB.SR PO SCH ×2 (09:25→20:34)
[2019-01-27] MEDS: Furosemide TAB* 20 MG PO SCH (09:25)
[2019-01-27] MEDS: Lidocaine PATCH 5%* 1 PATCH TRANSDERM SCH (09:26)
[2019-01-27] MEDS: Docusate CAP* 100 MG PO SCH ×2 (09:26→20:33)
[2019-01-27] MEDS: Ondansetron INJ* 2 MG/ML VIAL IV PRN (09:32)
[2019-01-27] MEDS: Cyclobenzaprine TAB* 10 MG PO PRN ×2 (11:43→21:55)
[2019-01-27] MEDS: LORazepam TAB(*) 0.5 MG PO PRN (11:43)
[2019-01-27] MEDS: predniSONE TAB* 20 MG PO SCH (13:05)
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
[2019-01-27] MEDS: Diazepam TAB(*) 5 MG PO SCH (20:33)
[2019-01-27] MEDS: Lidocaine Patch REMOVE* 1 NOTE MISC SCH (22:01)
[2019-01-28] MEDS: oxyCODONE TAB* 5 MG TAB PO PRN ×3 (01:56→10:41)
[2019-01-28] MEDS: Heparin VIAL(*) 5000 UNITS/ML VIAL (FIVE THOUSAND) SUBCUT SCH (06:08)
[2019-01-28 07:32] VITALS: BP 124/70
[2019-01-28] MEDS: Baclofen TAB* 20 MG PO SCH (08:47)
[2019-01-28] MEDS: Losartan TAB* 25 MG PO SCH (08:47)
[2019-01-28] MEDS: Pregabalin CAP(*) 25 MG PO SCH (08:47)
[2019-01-28] MEDS: Cyclobenzaprine TAB* 10 MG PO PRN (08:48)
[2019-01-28] MEDS: Diazepam TAB(*) 5 MG PO SCH (08:49)
[2019-01-28] MEDS: predniSONE TAB* 20 MG PO SCH (08:49)
[2019-01-28] MEDS: Furosemide TAB* 20 MG PO SCH (08:49)
[2019-01-28] MEDS: oxyCODONE SR TAB(*) 20 MG TAB.SR PO SCH (08:49)
[2019-01-28] MEDS: Lidocaine PATCH 5%* 1 PATCH TRANSDERM SCH (08:50)
[2019-01-28] MEDS: Docusate CAP* 100 MG PO SCH (08:50)
[2019-01-28] MEDS: Polyethylene Glycol 3350* 17 GM PACKET PO PRN (08:58)
[2019-01-28] MEDS: Morphine INJ* 4 MG/ML 1 ML SYRINGE (NEW SYRINGE VERSION) IV PRN (11:30)
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
== END 2019-01-28 11:45 | disposition home or self-care (01) ==
LOC: ED 16:20 → SSU 22:35
PROVIDERS: ADMIT Student in an Organized Health Care Education/Training Program; ATTEND Internal Medicine
DX: M54.9 Dorsalgia, unspecified (principal); R60.0 Localized edema; I10 Essential (primary) hypertension; F41.9 Anxiety disorder, unspecified; Z79.899 Other long term (current) drug therapy; R20.0 Anesthesia of skin; Z87.828 Personal history of other (healed) physical injury and trauma
CPT/HCPCS: 36415; 72125; 72128; 72131; 72192; 80053; 81003; 83605; 85025; 85652; 86140; 96372; 96374; 96375; 96376; 99284; A9270-GY; G0378; G8978-GP-CI; G8979-GP-CI; G8980-GP-CI; J1170; J1644; J2270; J2405; J7512

== ENCOUNTER 2019-09-28 13:50 | Inpatient (IN) ==
[2019-09-28] MEDS ORDERED: NS 0.9% 1000 ml BAG 1,000 ML IV ONE (14:07)
[2019-09-28] MEDS ORDERED: HYDROmorphone 0.5 MG/0.5 ML SYRINGE IV ONE ×2 (14:07→16:46)
[2019-09-28 14:47] LABS: ABS Lymphocytes 0.2 10^3/ul (1.0-4.8); ABS Monocytes 0.5 10^3/ul (0-0.8); ABS Neutrophils 4.7 10^3/ul (1.5-7.7); Eosinophil % 0.2 %; Hematocrit 35 % (42-52); Hemoglobin 11.9 g/dL (14.0-18.0); Mean Corpuscular HGB Conc 34 g/dL (31-36); Mean Corpuscular Hemoglobin 32 pg (27-31); Mean Corpuscular Volume 94 fL (80-94); Mean Platelet Volume 6.7 fL (7.4-10.4); Platelet Count 261 10^3/uL (150-450); Red Blood Count 3.76 10^6 /uL (4.18-5.48); Red Cell Distribution Width 13 % (10-15); White Blood Count 5.4 10^3/uL (3.5-10.8)
[2019-09-28 14:54] LABS: INR 1.18 (0.82-1.09)
[2019-09-28 15:04] LABS: Albumin 3.3 g/dL (3.2-5.2); Albumin/Globulin Ratio 1.2 (1-3); BUN/Creatinine Ratio 22.7 (8-20); EGFR African American 146.1 (>60); EGFR Non-African American 120.8 (>60); Globulin 2.8 g/dL (2-4); Potassium 4.2 mmol/L (3.5-5.0); Total Bilirubin 0.6 mg/dL (0.2-1.0); Total Protein 6.1 g/dL (6.4-8.9)
[2019-09-28] MEDS ORDERED: HYDROmorphone 1 MG/1 ML SYRINGE IV ONE (15:04)
[2019-09-28] MEDS ORDERED: Iohexol 350 (CONTRAST) 500 ML MDV IV ONE (15:24)
[2019-09-28] MEDS ORDERED: oxyCODONE SR 20 mg TAB PO ONE (16:46)
[2019-09-28] MEDS ORDERED: OXYCODONE 15 MG PO SCH (18:15)
[2019-09-28] MEDS ORDERED: OXYCODONE 15 MG PO PRN (18:19)
[2019-09-28] MEDS ORDERED: chlorproMAZINE 25 MG/ML 2 ML (50 MG) IV PRN (18:32)
[2019-09-28] MEDS ORDERED: Fluticasone NASAL SPRAY 50MCG 16 gm SPRAY BTL BOTH NARES PRN (19:19)
[2019-09-28] MEDS ORDERED: Enoxaparin 40 MG/0.4 ML SYR SUBCUT SCH (20:00)
[2019-09-28] MEDS: Pantoprazole VIAL 40 MG VIAL IV SCH (21:21)
[2019-09-28] MEDS: NS 0.9% 1000 ml BAG 1,000 ML IV SCH (21:24)
[2019-09-28] MEDS: Sucralfate 1 gm SUSP 1 GM/10 ML UDC PO ONE (22:35)
[2019-09-29] MEDS: Sucralfate 1 gm SUSP 1 GM/10 ML UDC PO ONE (00:58)
[2019-09-29] MEDS: HYDROmorphone 1 MG/1 ML SYRINGE IV SLOW PU PRN ×6 (02:58→22:22)
[2019-09-29] MEDS: oxyCODONE SR 20 mg TAB PO SCH ×2 (06:19→18:22)
[2019-09-29 06:31] LABS: ABS Lymphocytes 0.2 10^3/ul (1.0-4.8); ABS Monocytes 0.6 10^3/ul (0-0.8); ABS Neutrophils 3.5 10^3/ul (1.5-7.7); Eosinophil % 1.1 %; Hematocrit 33 % (42-52); Hemoglobin 11.4 g/dL (14.0-18.0); Lymphocyte % 4.4 %; Mean Corpuscular HGB Conc 35 g/dL (31-36); Mean Corpuscular Hemoglobin 32 pg (27-31); Mean Corpuscular Volume 93 fL (80-94); Mean Platelet Volume 6.3 fL (7.4-10.4); Platelet Count 259 10^3/uL (150-450); Red Blood Count 3.52 10^6 /uL (4.18-5.48); Red Cell Distribution Width 13 % (10-15); White Blood Count 4.4 10^3/uL (3.5-10.8)
[2019-09-29 06:46] LABS: BUN/Creatinine Ratio 19.7 (8-20); Calcium 8.1 mg/dL (8.6-10.3); EGFR African American 146.1 (>60); EGFR Non-African American 120.8 (>60); Magnesium 1.9 mg/dL (1.9-2.7); Potassium 3.9 mmol/L (3.5-5.0)
[2019-09-29] MEDS: Sucralfate 1 gm SUSP 1 GM/10 ML UDC PO SCH ×3 (07:42→16:06)
[2019-09-29] MEDS: Lidocaine PATCH 5% PATCH TRANSDERM SCH (08:05)
[2019-09-29] MEDS: Polyethylene Glycol 3350 17 GM PACKET PO SCH (08:06)
[2019-09-29] MEDS: NS 0.9% 1000 ml BAG 1,000 ML IV SCH (10:38)
[2019-09-29] MEDS: Pantoprazole VIAL 40 MG VIAL IV SCH (20:44)
[2019-09-29] MEDS: Lidocaine Patch REMOVE PATCH PATCH OFF SCH (20:50)
[2019-09-29] MEDS: Ondansetron 4 mg VIAL 2 MG/ML 2 ml VIAL IV PRN (21:23)
[2019-09-30] MEDS: HYDROmorphone 1 MG/1 ML SYRINGE IV SLOW PU PRN ×7 (02:14→22:33)
[2019-09-30] MEDS: NS 0.9% 1000 ml BAG 1,000 ML IV SCH ×2 (03:15→20:42)
[2019-09-30] MEDS: oxyCODONE SR 20 mg TAB PO SCH ×2 (06:15→18:27)
[2019-09-30 06:43] LABS: ABS Eosinophils 0.1 10^3/ul (0-0.6); ABS Lymphocytes 0.2 10^3/ul (1.0-4.8); ABS Monocytes 0.6 10^3/ul (0-0.8); ABS Neutrophils 3.4 10^3/ul (1.5-7.7); Eosinophil % 1.6 %; Hematocrit 33 % (42-52); Hemoglobin 11.4 g/dL (14.0-18.0); Lymphocyte % 5.2 %; Mean Corpuscular HGB Conc 35 g/dL (31-36); Mean Corpuscular Hemoglobin 33 pg (27-31); Mean Corpuscular Volume 94 fL (80-94); Mean Platelet Volume 6.4 fL (7.4-10.4); Platelet Count 247 10^3/uL (150-450); Red Blood Count 3.48 10^6 /uL (4.18-5.48); Red Cell Distribution Width 13 % (10-15); White Blood Count 4.4 10^3/uL (3.5-10.8)
[2019-09-30 06:58] LABS: BUN/Creatinine Ratio 14.3 (8-20); EGFR African American 154.2 (>60); EGFR Non-African American 127.4 (>60); Potassium 3.9 mmol/L (3.5-5.0)
[2019-09-30] MEDS: Sucralfate 1 gm SUSP 1 GM/10 ML UDC PO SCH ×3 (07:58→16:09)
[2019-09-30] MEDS: Polyethylene Glycol 3350 17 GM PACKET PO SCH ×4 (08:05→14:25)
[2019-09-30] MEDS: Lidocaine PATCH 5% PATCH TRANSDERM SCH (08:23)
[2019-09-30] MEDS: Magic MouthWash1-BEN/MAAL/LIDO 180 ML BTL SWISH SWAL SCH ×3 (13:55→20:45)
[2019-09-30] MEDS: Lidocaine Patch REMOVE PATCH PATCH OFF SCH (22:38)
[2019-10-01] MEDS: HYDROmorphone 1 MG/1 ML SYRINGE IV SLOW PU PRN ×11 (00:14→22:20)
[2019-10-01] MEDS: oxyCODONE SR 20 mg TAB PO SCH ×2 (04:42→17:57)
[2019-10-01] MEDS: Sucralfate 1 gm SUSP 1 GM/10 ML UDC PO SCH ×3 (08:14→16:54)
[2019-10-01] MEDS: Polyethylene Glycol 3350 17 GM PACKET PO SCH (08:14)
[2019-10-01] MEDS: Magic MouthWash1-BEN/MAAL/LIDO 180 ML BTL SWISH SWAL SCH ×4 (08:15→22:21)
[2019-10-01] MEDS: Lidocaine PATCH 5% PATCH TRANSDERM SCH (08:44)
[2019-10-01] MEDS: NS 0.9% 1000 ml BAG 1,000 ML IV SCH (12:08)
[2019-10-01] MEDS: Lidocaine Patch REMOVE PATCH PATCH OFF SCH (19:54)
[2019-10-02] MEDS: HYDROmorphone 1 MG/1 ML SYRINGE IV SLOW PU PRN ×10 (00:13→23:07)
[2019-10-02] MEDS: NS 0.9% 1000 ml BAG 1,000 ML IV SCH (01:41)
[2019-10-02] MEDS: oxyCODONE SR 20 mg TAB PO SCH ×3 (05:18→22:09)
[2019-10-02] MEDS: Sucralfate 1 gm SUSP 1 GM/10 ML UDC PO SCH ×3 (07:45→18:49)
[2019-10-02] MEDS: Magic MouthWash1-BEN/MAAL/LIDO 180 ML BTL SWISH SWAL SCH ×4 (08:21→21:07)
[2019-10-02] MEDS: Lidocaine PATCH 5% PATCH TRANSDERM SCH (08:22)
[2019-10-02] MEDS: Polyethylene Glycol 3350 17 GM PACKET PO SCH (08:27)
[2019-10-02] MEDS: Albuterol HFA INHALER 8 gm MDI INH PRN (18:23)
[2019-10-02] MEDS: Lidocaine Patch REMOVE PATCH PATCH OFF SCH (21:05)
[2019-10-03] MEDS: HYDROmorphone 1 MG/1 ML SYRINGE IV SLOW PU PRN ×6 (01:03→12:11)
[2019-10-03] MEDS: oxyCODONE SR 20 mg TAB PO SCH ×2 (03:06→11:17)
[2019-10-03] MEDS: Lidocaine PATCH 5% PATCH TRANSDERM SCH (07:51)
[2019-10-03] MEDS: Polyethylene Glycol 3350 17 GM PACKET PO SCH (07:53)
[2019-10-03] MEDS: Sucralfate 1 gm SUSP 1 GM/10 ML UDC PO SCH ×3 (08:29→17:11)
[2019-10-03] MEDS: Magic MouthWash1-BEN/MAAL/LIDO 180 ML BTL SWISH SWAL SCH ×4 (11:11→22:39)
[2019-10-03] MEDS: Albuterol HFA INHALER 8 gm MDI INH PRN (11:13)
[2019-10-03] MEDS ORDERED: HYDROmorphone 0.5 MG/0.5 ML SYRINGE IV SLOW PU PRN (13:40)
[2019-10-03] MEDS ORDERED: Furosemide 20 mg/2 ml IV VIAL IV ONE ×2 (14:19→18:47)
[2019-10-03] MEDS: Ondansetron 4 mg VIAL 2 MG/ML 2 ml VIAL IV PRN (17:43)
[2019-10-03] MEDS: oxyCODONE SR 10 mg TAB PO SCH (20:34)
[2019-10-03] MEDS: Lidocaine Patch REMOVE PATCH PATCH OFF SCH (22:39)
[2019-10-04] MEDS: oxyCODONE SR 10 mg TAB PO SCH ×2 (04:53→14:13)
[2019-10-04 05:20] LABS: ABS Eosinophils 0.1 10^3/ul (0-0.6); ABS Lymphocytes 0.3 10^3/ul (1.0-4.8); ABS Monocytes 0.6 10^3/ul (0-0.8); Eosinophil % 1.2 %; Hematocrit 33 % (42-52); Hemoglobin 11.2 g/dL (14.0-18.0); Lymphocyte % 5.6 %; Mean Corpuscular HGB Conc 34 g/dL (31-36); Mean Corpuscular Hemoglobin 32 pg (27-31); Mean Corpuscular Volume 93 fL (80-94); Mean Platelet Volume 6.5 fL (7.4-10.4); Platelet Count 280 10^3/uL (150-450); Red Blood Count 3.49 10^6 /uL (4.18-5.48); Red Cell Distribution Width 13 % (10-15); White Blood Count 6.1 10^3/uL (3.5-10.8)
[2019-10-04 05:36] LABS: BUN/Creatinine Ratio 30.1 (8-20); Calcium 8.8 mg/dL (8.6-10.3); EGFR African American 130.1 (>60); EGFR Non-African American 107.5 (>60); Magnesium 1.9 mg/dL (1.9-2.7); Phosphorus 3.8 mg/dL (2.5-5.0); Potassium 4.1 mmol/L (3.5-5.0)
[2019-10-04] MEDS: Sucralfate 1 gm SUSP 1 GM/10 ML UDC PO SCH ×2 (08:02→12:19)
[2019-10-04] MEDS: Lidocaine PATCH 5% PATCH TRANSDERM SCH (08:05)
[2019-10-04] MEDS: Magic MouthWash1-BEN/MAAL/LIDO 180 ML BTL SWISH SWAL SCH ×2 (08:05→12:21)
[2019-10-04] MEDS: Polyethylene Glycol 3350 17 GM PACKET PO SCH (08:49)
[2019-10-04 15:26] VITALS: BP 147/56
== END 2019-10-04 17:10 | disposition home or self-care (01) | DRG 243 ==
LOC: MED 13:50 → ED 13:50 → MED 19:26
PROVIDERS: ADMIT Internal Medicine; ATTEND Internal Medicine